=== PATIENT | female | born 1965 | race Caucasian/White ===

== ENCOUNTER 2018-10-01 12:14 | Inpatient (IN) ==
[2018-10-01 13:44] LABS: Baso # (Auto) 0.1 th/mm3 (0.0-0.2); Eos # (Auto) 0.1 th/mm3 (0.0-0.4); Eos % (Auto) 2.1 % (0.0-4.0); Hematocrit 33.9 % (35.0-46.0); Hemoglobin 12.5 gm/dL (11.6-15.3); Lymph # (Auto) 0.9 th/mm3 (1.0-4.8); Lymph % (Auto) 15.1 % (9.0-44.0); Mean Corpuscular Hemoglobin 38.3 pg (27.0-34.0); Mean Corpuscular Volume 103.7 fL (80.0-100.0); Mean Platelet Volume 6.8 fL (7.0-11.0); Mono # (Auto) 0.7 th/mm3 (0.0-0.9); Mono % (Auto) 12.5 % (0.0-8.0); Neut # (Auto) 4.1 th/mm3 (1.8-7.7); Neut % (Auto) 69.3 % (16.0-70.0); Platelet Count 268 th/mm3 (150-450); Red Blood Count 3.26 mil/mm3 (4.00-5.30); Red Cell Distribution Width 12.2 % (11.6-17.2)
--- NOTE | 2018-10-01 13:44 | ED ---
HPI General Chief Complaint: Weakness Stated Complaint: Medical Time Seen by Provider: 10/01/18 13:08 Source: patient and family Mode of arrival: ambulatory Limitations: no limitations History of Present Illness HPI Narrative: Patient is a 53-year-old female presenting to the emergency department for evaluation of facial numbness and weakness in her left upper and lower extremities. Patient states she developed numbness to the left side of her face and tongue several weeks ago. She went to her primary doctor on who ordered an outpatient MRI which is scheduled for October 13. Since patient has had increasing numbness and decreased case briefer strength and coordination in the left arm and left leg. Patient reports that she has had a headache for several weeks which has been more noticeable recently. The headache is localized to the left worship, stabbing in nature, 4 out of 10. Patient took ibuprofen prior to arrival. Patient has a medical history significant for metastatic colon cancer. She reports that it has metastasized to her lungs and her lymph nodes. She has not been on any chemo or radiation for 2 years. She is not seeking any further treatment for the cancer per her report. states that she fell last night and hitting her head, unknown LOC, no prolonged downtime. Patient states that she was making soup last night and she was holding a cup and her case briefer gave out spontaneously. Patient denies any bladder or bowel incontinence, no saddle paresthesia, no speech issues, no dysphasia. Patient is followed by Dr. Dubose for oncology and Dr. Arcos is her primary doctor. Onset (ago): week(s) Timing confirmed by: spouse Location: Reports left face, left arm and left leg History of same: Yes Severity: mild Quality: Reports weak, numb and tingling Relieving factors: none Exacerbating factors: none Context: Reports gradual onset and recent fall On Anticoagulants: No Associated symptoms: Reports headaches Related Data Home Medications Medication Instructions Recorded Confirmed bupropion HCl 300 mg PO QAM 05/19/18 10/01/18 cetirizine [Zyrtec] 10 mg PO DAILY 05/19/18 10/01/18 citalopram 40 mg PO DAILY 05/19/18 10/01/18 valacyclovir 1,500 mg PO DAILY 05/19/18 10/01/18 Allergies Allergy/AdvReac Type Severity Reaction Status Date / Time No Known Allergies Allergy Unverified 12/29/18 12:22 Review of Systems ROS: all other systems reviewed are negative [facility] Medical History Medical History Depression (Acute) Genital herpes (Acute) Normal colonoscopy (Acute) Rectal cancer (Acute) Surgical History Surgical History Hx of tonsillectomy (Acute) Social History Social History Substance History: Active Abuse Second Hand Smoke Exposure: Yes Smoking Status: Former smoker Tobacco Type: Cigarettes How Often Do You Have a Drink Containing Alcohol: 4 or more times a week Recent Travel in [facility] within the Last 8 Weeks: No Recent Out of Country Travel within the Last 8 Weeks: No Substance Abuse Detail Marijuana: Substance Use Type Other:: Medical marijuana Substance Use Status: Active Route Used Substance Abuse: By Mouth Substance Abuse Comment: Medical marijuana Immunization History Tetanus Immunization: >5 Years Exam Narrative Exam Narrative: GENERAL: female. Presenting in no acute distress. SKIN: Focused skin assessment warm/dry. HEAD: Atraumatic. Normocephalic. EYES: Pupils equal and round. No scleral icterus. No injection or drainage. ENT: No nasal bleeding or discharge. Mucous membranes pink and moist. NECK: Trachea midline. No JVD. CARDIOVASCULAR: Regular rate and rhythm. No murmur appreciated. RESPIRATORY: No accessory muscle use. Clear to auscultation. Breath sounds equal bilaterally. GASTROINTESTINAL: Abdomen soft, non-tender, nondistended. Hepatic and splenic margins not palpable. MUSCULOSKELETAL: No obvious deformities. No clubbing. No cyanosis. No edema. NEUROLOGICAL: Awake and alert. No obvious cranial nerve deficits. Motor grossly within normal limits. Normal speech. Slight droop to the left side of mouth. PSYCHIATRIC: Appropriate mood and affect; insight and judgment normal. Course Initial Documented Vital Signs Temperature 98.1 F 10/01/18 12:19 Pulse Rate 78 10/01/18 12:19 Respiratory Rate 18 10/01/18 12:19 Blood Pressure 120/67 10/01/18 12:19 Pulse Oximetry 100 10/01/18 12:19 Last Documented Vital Signs Temperature 97.9 F 10/01/18 18:50 Pulse Rate 68 10/01/18 18:50 Respiratory Rate 18 10/01/18 18:50 Blood Pressure 132/65 10/01/18 18:50 Pulse Oximetry 97 10/01/18 18:50 Critical Care Time Critical Care Time: Yes Total Critical Care Time: 35 Attestation: Counseling/ Coordination of Care: This patient is critically ill with impairment of one or more vital organ systems with a high probability of imminent or life-threatening deterioration. High-complexity medical decision making was required to support vital organ function and/ or prevent deterioration in the patient's condition. Total critical care time spent is 35 minutes giving full attention to this patient. This includes examining and stabilizing the patient, gathering a history from a source other than the patient (i.e., chart review), formulating a differential diagnosis, ordering and interpreting laboratory tests and EKG, ordering and interpreting radiology tests, discussing the patient's care with other providers (neurosurgery, medical oncology, ISC), re-evaluation at frequent intervals, and documentation. Amount of time is separate from teaching, counseling the patient and/or family, and exclusive of procedures. Medical Decision Making ROX Attestation ROX supervised visit: Yes Attestation: I was present with the advanced practitioner during the management of this patient. I discussed the case with the advanced practitioner and agree with the findings and plan as documented in their note except as noted below. 53yF with known metastatic colon CA (lungs, lymph nodes above diaphragm) presenting with several weeks of left-sided face and tongue paresthesias and 2- 3 days of LUE/ LLE paresthesias and weakness. She had a slip and fall at home yesterday secondary to weakness. She had surgery and chemorad 2 years ago when she was initially diagnosed and has since been offered chemotherapy but declined because of work obligations and fear of side effects from chemo. She follows with Dr. Dubose of medical oncology. On exam, the patient is awake and alert with clear, fluent speech, motor strength 5/5 and sensation intact to all extremities, pupils 3 mm and reactive bilaterally, no focal neuro deficits. An MRI of her brain was performed and shows a right thalamic lesion with extensive vasogenic edema extending to brain stem, left frontal convexity lesion , and extra-axial dural thickening concerning for leptomeningeal involvement. I had a long conversation with the patient and her regarding these results. I explained that I recommend admitting her to the intensive care unit for serial neuro checks, IV steroids, and neurosurgery/ oncology/ rad onc consults. I also recommended that she speak with our palliative care service to clarify her overall goals of care. They understand and agree; patient wishes to be full code at this point in time. I spoke with Dr. Haile (neurosurgery) and Dr. Butler (med onc), who agree with [facility] admit and decadron (4 mg q6hr). Case also discussed with Dr. Jonas and Dr. Menon of [facility]. MDM Narrative Medical decision making narrative: Patient presented for evaluation of increasing numbness and tingling as well as weakness in the left side of her body, she also reports increasing headaches. Labs and imaging ordered and pending. Will obtain MRIs of the brain, cervical spine and lumbar spine. Patient has no focal deficits in her extremities. There appears to be a slight facial drooping to the left mouth. Labs reviewed, no acute findings. MRI of the brain shows a 1.8 cm mass within the right thalamus with moderate mass- effect and extensive vasogenic edema extending caudally into the brainstem characteristic of metastatic disease. There is also a possible second lesion at T2, there is also dural thickening in the right temporal lobe possibly signifying leptomeningeal involvement. Patient was given Decadron 10 mg IV x1 dose. These findings were discussed by my attending physician with neurosurgery , printing screen assembler and oncology. Discussed findings with patient and her at bedside. All questions were answered. Please see my attending physician's dictation for further documentation. Medical Screen Exam Complete: Yes Emergency Medical Condition: Yes Differential Diagnosis Differential Diagnosis: Mass versus TIA versus CVA versus radiculopathy versus metabolic abnormality versus other Medical Records Medical records reviewed: Yes I reviewed the patient's medical records. Lab Data Lab results reviewed: Yes I reviewed the patient's lab results. Result diagrams: 10/01/18 13:25 10/01/18 13:25 Lab Results 10/01/18 10/01/18 10/01/18 Range/Units 13:25 13:25 14:40 WBC 6.0 (4.0-11.0) th/mm3 RBC 3.26 L (4.00-5.30) mil/mm3 Hgb 12.5 (11.6-15.3) gm/dL Hct 33.9 L (35.0-46.0) % MCV 103.7 H (80.0-100.0) fL MCH 38.3 H (27.0-34.0) pg MCHC 37.0 H (32.0-36.0) % RDW 12.2 (11.6-17.2) % Plt Count 268 (150-450) th/mm3 MPV 6.8 L (7.0-11.0) fL Prelim Diff (Auto) Slide review pending Neut % (Auto) 69.3 (16.0-70.0) % Lymph % (Auto) 15.1 (9.0-44.0) % [place] % (Auto) 12.5 H (0.0-8.0) % Eos % (Auto) 2.1 (0.0-4.0) % Baso % (Auto) 1.0 (0.0-2.0) % Neut # (Auto) 4.1 (1.8-7.7) th/mm3 Lymph # (Auto) 0.9 L (1.0-4.8) th/mm3 [place] # (Auto) 0.7 (0.0-0.9) th/mm3 Eos # (Auto) 0.1 (0.0-0.4) th/mm3 Baso # (Auto) 0.1 (0.0-0.2) th/mm3 WBC Differential . Diff Scan Auto diff confirmed Differential Comment . Sodium 140 (136-145) meq/L Potassium 4.6 (3.5-5.1) meq/L Chloride 107 (98-107) meq/L Carbon Dioxide 28.5 (21.0-32.0) meq/L Anion Gap 5 (5-15) meq/L BUN 9 (7-18) mg/dL Creatinine 0.68 (0.50-1.00) mg/dL Estimated GFR Greater than 89 (>89) mL/min Random Glucose 93 (74-106) mg/dL Calcium 8.4 L (8.5-10.1) mg/dL Total Bilirubin 0.3 (0.2-1.0) mg/dL AST 18 (15-37) U/L ALT 25 (10-53) U/L Alkaline Phosphatase 76 (45-117) U/L Total Protein 7.5 (6.4-8.2) g/dL Albumin 3.5 (3.4-5.0) g/dL Urine Color Yellow (Yellw/Straw) Urine Clarity Clear (Clear) Urine pH 5.0 (5.0-8.5) Ur Specific [place] 1.009 (1.002-1.035) Urine Protein Negative (Neg-Trace) mg/dL Urine Glucose (UA) Negative (Negative) mg/dL Urine Ketones Negative (Negative) mg/dL Urine Occult Blood Small H (Negative) Urine Nitrate Negative (Negative) Urine Bilirubin Negative (Negative) Urine Urobilinogen Less than 2 (Less than 2) mg/dL Ur Leukocyte Esterase Small H (Negative) Urine RBC 1 (0-3) /hpf Urine WBC 3 (0-5) /hpf Ur Squamous Epith Cells <1 (0-5) /hpf Urine Mucus Few H (Occasional) /lpf Micro UA Comment Culture not ind Ur Microscopic Review Not Reportable Urine Culture Comments Culture not ind Imaging Data Radiologist's impression: Cervical Spine MRI 10/01/18 13:16 CONCLUSION: 1. Left posterior lateral disc protrusion at C6-7 with foraminal encroachment. 2. Degenerative disc disease at C4-5, C5-6 and C6-7 as described. 3. No acute bony abnormality. 4. Normal-appearing spinal cord. Head MRI 10/01/18 13:16 CONCLUSION: 1. 1.8 cm rim-enhancing mass within the right thalamus with moderate mass effect and extensive vasogenic edema extending caudally into the brainstem characteristic of metastatic disease. 2. Small T2 hyperintense focus along the left frontal convexity which may represent a second lesion. 3. Extra-axial dural thickening is noted along the right temporal lobe which may represent leptomeningeal involvement. Lumbar Spine MRI 10/01/18 13:16 CONCLUSION: 1. Degenerative disc disease as described. 2. Discrete findings to account for the patient's left-sided weakness. 3. No acute bony abnormality, spinal stenosis or foraminal encroachment. 4. Small central disc protrusion at L4-5. Discharge Plan Discharge Disposition Patient Disposition: ED Admit(ED Internal Use Only) Discharge Condition Condition: Stable Discharge Order Discharge Orders: ED Use Only Admit Order (Routine); Ordered 10/01/18 Ordered By: aGlina Delgado Discharge Details Diagnosis: Metastatic colon cancer in female, Neoplasm of brain causing mass effect on adjacent structures Physicians Team ED Provider: Galina Delgado ED Midlevel Provider: Stephanie Aguila Primary Care Provider: Cheyanne Cheney Other Providers: Yang Butler ; Jesús Jett ; Angelina Randolph ; Salvador Haile Rxs /Orders / Referrals /Forms Prescriptions: No Action citalopram 40 mg Tablet 40 mg PO DAILY RF: 0 valacyclovir 500 mg Tablet 1,500 mg PO DAILY RF: 0 bupropion HCl 300 mg Tablet Extended Release 24 Hr 300 mg PO QAM RF: 0 cetirizine [Zyrtec] 10 mg Tablet 10 mg PO DAILY RF: 0 Status ED Status: Admitted Patient
[2018-10-01 14:01] LABS: Alanine Aminotransferase 25 U/L (10-53); Albumin 3.5 g/dL (3.4-5.0); Anion Gap 5 meq/L (5-15); Aspartate Aminotransferase 18 U/L (15-37); Blood Urea Nitrogen 9 mg/dL (7-18); Calcium 8.4 mg/dL (8.5-10.1); Carbon Dioxide 28.5 meq/L (21.0-32.0); Chloride 107 meq/L (98-107); Glomerular Filtration Rate Greater Than 89 mL/min (>89); Glucose,Random 93 mg/dL (74-106); Potassium 4.6 meq/L (3.5-5.1); Sodium 140 meq/L (136-145)
[2018-10-01 14:03] LABS: Alkaline Phosphatase 76 U/L (45-117); Total Protein 7.5 g/dL (6.4-8.2)
[2018-10-01] MEDS ORDERED: Gadobutrol PF 7.5 MMOL/7.5 ML Vial (for RAD) IV.SIG ONE (15:15)
[2018-10-01 15:24] LABS: Bilirubin,Urine Negative (Negative); Clarity,Urine Clear (Clear); Color,Urine Yellow (Yellw/Straw); Glucose,Urine (UA) Negative (Negative); Leukocyte Esterase,Urine Small (Negative); Mucus,Urine Few /lpf (Occasional); Nitrite,Urine Negative (Negative); Specific Gravity,Urine 1.009 (1.002-1.035); Squamous Epithelial Cell,Urine <1 /hpf (0-5)
--- NOTE | 2018-10-01 15:46 | MR ---
EXAM DATE: 10/01/2018 3:34 PM EST AGE/SEX: 53 years / Female INDICATIONS: Extremity weakness. CLINICAL DATA: This is the patient's initial encounter. Patient reports that signs and symptoms have been present for 2 days and indicates a pain score of 0/10. MEDICAL/SURGICAL HISTORY: Metastatic disease. Carcinoma, colon. . Lung biopsy. Anal resection. [place] [facility] [place]/01/2018. . TECHNIQUE: Multiplanar, multisequence MRI examination of the cervical spine was performed without an d with 7cc ml Gadavist (gadobutrol) contrast as a single exam dose. FINDINGS: Images are degraded by patient motion. ALIGNMENT: Vertebral bodies are satisfactorily aligned without evidence of listhesis. FACET AND OSSEOUS STRUCTURES: Vertebral body height is well-maintained. There is no evidence of acut e fracture, bone marrow edema or destructive changes. There is no significant facet arthropathy. INTERVERTEBRAL DISC SPACES: Mild degenerative disc disease is noted at C4-5, C5-6 and C6-7. There ar e broad-based posterior disc osteophyte complexes. There is no significant epidural mass effect. Mild left posterior lateral disc protrusion is identified at C6-7 with mild foraminal encroachment. T here is no other evidence of significant disc protrusion. NEUROLOGIC STRUCTURES: The spinal cord and nerve roots appear normal. There is no evidence of cheri ebony. . CONCLUSION: 1. Left posterior lateral disc protrusion at C6-7 with foraminal encroachment. 2. Degenerative disc disease at C4-5, C5-6 and C6-7 as described. 3. No acute bony abnormality. 4. Normal-appearing spinal cord. Electronically signed by: Abdirashid Mata MD Board Certified Radiologist 10/01/2018 3:45 PM EST
--- NOTE | 2018-10-01 16:00 | MR ---
EXAM DATE: 10/01/2018 3:33 PM EST AGE/SEX: 53 years / Female INDICATIONS: Left sided weakness. CLINICAL DATA: This is the patient's initial encounter. Patient reports that signs and symptoms have been present for 2 days and indicates a pain score of 0/10. MEDICAL/SURGICAL HISTORY: Metastatic disease. Carcinoma, colon. . Lung biopsy. Anal resection. COMPARISON: No prior exams available for comparison. TECHNIQUE: Multiplanar, multisequence examination of the brain was performed without and with 7cc ml Gadavist (gadobutrol) contrast as a single exam dose. FINDINGS: Cerebrum: A 1.8 cm rim-enhancing mass is identified within the right thalamus. There is extensive lira rrounding vasogenic edema which extends caudally into the midbrain and posterior mesha. Small amount o f hemorrhage is identified along the right anterolateral margin of the mass. There is focal restricte d diffusion. No other enhancing intra-axial lesions are noted. A very small T2 hyperintense focus is seen along the left parietal convexity. There is no associated enhancement, mass effect or edema. Extra-axial dural thickening is seen along the right temporal lobe. White Matter: Vasogenic edema is identified in the white matter tracts within the right basal gangli onic region extending into the brainstem. Posterior Fossa: As indicated above there is vasogenic edema extending into the right side of the bra instem. Cerebellar hemispheres are unremarkable. Diffusion Imaging: No other focal areas of restricted diffusion are seen. Extracranial: The visualized portions of the orbits and paranasal sinuses are unremarkable. Post Contrast: No abnormal areas of parenchymal or dural enhancement. No evidence of blood-brain ba rrier breakdown. CONCLUSION: 1. 1.8 cm rim-enhancing mass within the right thalamus with moderate mass effect and extensive vasog enic edema extending caudally into the brainstem characteristic of metastatic disease. 2. Small T2 hyperintense focus along the left frontal convexity which may represent a second lesion. 3. Extra-axial dural thickening is noted along the right temporal lobe which may represent leptomeni ngeal involvement. Electronically signed by: Abdirashid Mata MD Board Certified Radiologist 10/01/2018 3:58 PM EST
[2018-10-01] MEDS ORDERED: Dexamethasone Inj 20 MG/5 ML Vial IV.PUSH ONE (16:01)
--- NOTE | 2018-10-01 16:10 | MR ---
EXAM DATE: 10/01/2018 3:48 PM EST AGE/SEX: 53 years / Female INDICATIONS: Weakness. Left side weakness. CLINICAL DATA: This is the patient's initial encounter. Patient reports that signs and symptoms have been present for 2 days and indicates a pain score of 0/10. MEDICAL/SURGICAL HISTORY: Metastatic disease. Carcinoma, colon. . Lung biopsy. Anal resection. COMPARISON: [facility] – [place], [place] CERVICAL SPINE W & W/O CON, 10/01/2018. . TECHNIQUE: Multiplanar, multisequence MRI examination of the lumbar spine was performed without and with 7cc ml Gadavist (gadobutrol) contrast as a single exam dose. FINDINGS: ALIGNMENT: Vertebral bodies are satisfactorily aligned without evidence of listhesis. FACET AND OSSEOUS STRUCTURES: Vertebral body height is well-maintained. There is no evidence of acut e fracture, bone marrow edema or destructive changes. There is no significant facet arthropathy. INTERVERTEBRAL DISC SPACES: Mild degenerative disc changes are noted. L1-2: Disc space narrowing with mild spondylosis and posterior disc osteophyte complex. There is no e vidence of significant herniation, foraminal encroachment or spinal stenosis. L2-3 and L3-4: Normal L4-5: Mild degenerative disc disease with minimal posterior disc protrusion. There is no significant epidural mass effect or foraminal encroachment. L5-S1: Mild degenerative disc disease with focal annular bulging but no evidence of disc herniation. There is no evidence of foraminal encroachment or spinal stenosis. NEUROLOGIC STRUCTURES: The spinal cord and nerve roots appear normal. There is no evidence of cheri ebony. CONCLUSION: 1. Degenerative disc disease as described. 2. Discrete findings to account for the patient's left-sided weakness. 3. No acute bony abnormality, spinal stenosis or foraminal encroachment. 4. Small central disc protrusion at L4-5. Electronically signed by: Abdirashid Mata MD Board Certified Radiologist 10/01/2018 4:09 PM EST
--- NOTE | 2018-10-01 18:36 | MB ---
cc: Salvador Haile MD DATE: 10/01/2018 TIME: 5:15 p.m. Report of initial comprehensive emergency department neurosurgical consultation. The patient was interviewed, examined, the documentation, laboratory evaluation and imaging reviewed. CHIEF COMPLAINT: Numbness and weakness on the left side. 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 She also has developed some weakness and incoordination on the left. Pertinent past medical history is remarkable for history of anal and colon cancer, status post resection, as well as chemo and radiation. She apparently suffered a lymphatic and pulmonary metastasis which was documented in May of this year and deferred chemotherapy at that time. In any case, she also describes headaches associated with these symptoms. She has undergone an MRI scan of the brain done with and without contrast, which suggests an enhancing lesion within the right thalamus extending into the midbrain as well as left frontal and temporal dural enhancement suggesting leptomeningeal disease. There is no hydrocephalus noted. She has also undergone an MRI scan of the cervical and lumbosacral spine, which reveals degenerative changes without any sign of metastatic disease. In any case, a neurosurgical consultation has been requested. PAST MEDICAL HISTORY: Remarkable for history of genital herpes and the rectal and colon cancer with metastasis as described above. PAST SURGICAL HISTORY: Remarkable for the rectal and colon cancer resection as well as a lung biopsy, as well as a history of a tonsillectomy. MEDICATIONS: 1. Valacyclovir. 2. Citalopram. 3. Zyrtec. 4. Bupropion. ALLERGIES: SHE HAS NO KNOWN DRUG ALLERGIES. SOCIAL HISTORY: She is independent. 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 She smokes cigarettes, 1 pack per week. She also takes ethanol socially and might abuse ethanol. She denies a history of illicit drug use. Also, it should be noted that she has been using a medical marijuana as prescribed for her anxiety. FAMILY HISTORY: Remarkable for a history of colon cancer in an aunt. REVIEW OF SYSTEMS: The patient denies any weight loss. She denies any fever, chills or night sweats. She admits to headaches. She admits to some blurring of vision. She denies any change in her thinking or memory or speech or swallowing or chest pain or shortness of breath or abdominal pain. She denies any change in bowel or bladder function or characteristics of urine or stool. She denies any swelling in her lower extremities. She admits to recent gait disturbance. She denies any rashes, itching, or easy bruising. She admits to history of anxiety and depression. NEUROLOGICAL EXAMINATION: VITAL SIGNS: Found her temperature to be 98, her heart rate is 80, her respiratory rate is 16, and her blood pressure is 130/80. SPO2 is 98% on room air. Mental status testing finds the patient to be awake and alert. She is orientated x 3. Cognitive function is grossly intact. His speech is fluent. Cranial nerve testing 2-12 are grossly intact. She had diminished sensation in the left side of her face, in the left V1, V2, and V3 distribution. Her pupils are equally round and reactive to light. Extraocular movements full, without diplopia or nystagmus. Coronary reflexes are present. Her face was symmetric. Gag reflex is present. Motor examination found bulk to be within normal limits. Tone is mildly increased in all 4 extremities. Power testing was 5+/5+ throughout with some subtle weakness proximally of her left upper and left lower extremity. Sensory examination revealed diminished to light touch over face as well as left upper and left lower extremity. Position sense was intact throughout. Deep tendon reflexes were 3+ and symmetric without pathological reflexes noted. Cerebellar testing found some dysmetria on the left. There was no truncal nor appendicular ataxia noted. Gait, Romberg and tandem were not tested. Her head was normocephalic. External auditory canals were clear. There is no sign of CSF otorrhea or rhinorrhea. Cervical spine evaluation revealed full range of motion without pain to palpation. Pulses were 4+, present and symmetric throughout. My impression is that the patient suffers with what appears to be multifocal brain metastasis with leptomeningeal component, primary most likely being rectal and colon carcinoma. RECOMMENDATIONS AND PLAN: I believe the patient requires admission and close neurological observation. At this point, certainly a conservative neurosurgical approach is warranted. I agree with starting her on some Decadron, and she certainly requires medical oncology consultation and radiation oncology consultation, since any neurosurgical intervention at this point is not indicated. She might be a candidate for stereotactic radiosurgery and one might also might consider the possibility of pursuing a lumbar puncture for cerebrospinal fluid analysis and cytology. In any case, I will be happy to follow along and discuss. Thank you for allowing me to participate in the care of this patient. MD ROCIO Boyce/lor , 05:55 PM , 06:06 PM
--- NOTE | 2018-10-01 19:13 | P.HPCC ---
History of Present Illness Service: Critical care medicine Primary Care Physician: Cheyanne Cheney DO Chief Complaint: left-sided numbness/weakness History of Present Illness: 53yF with history of stage IV metastatic colon cancer with mets to lung and lymph nodes presents with 3-4 weeks of progressive morning headaches and left facial numbness that has progressed to full left-sided paresthesias over the last few days and today had left-sided weakness and could not hold a cooking wade today. In the ER, she was found to have a midbrain mass highly suggestive of metastatic disease. She denies any other recent complaints. denies vision changes, blurry vision, double vision, syncope, presyncope, chest pain, sob, fever, chills, n/v/c/d/abd pain. remainder of the ROS negative. neurosurgery has evaluated the patient and recommends iv dexamethasone as well as rad/onc and med/onc consultations. Review of Systems All other systems reviewed negative except as stated in HPI PMFSH - History History Provided By: Patient - Medical History Medical History: Medical History (Last Reviewed 10/01/18 @ 20:47 by Reinaldo Menon MD) Depression Genital herpes Normal colonoscopy Rectal cancer - Surgical History Surgical History: Surgical History (Last Reviewed 10/01/18 @ 20:47 by Reinaldo Menon MD) Hx of tonsillectomy - Family History Family History: Family History (Last Updated 10/01/18 @ 20:47 by Reinaldo Menon MD) Other Family history non-contributory - Social History I have reviewed the patient's Social History: Yes - Tobacco History Second Hand Smoke Exposure: Yes Tobacco Use In Past 30 Days: Yes Smoking Status: Former smoker Tobacco Type: Cigarettes - Alcohol History How Often Do You Have a Drink Containing Alcohol: 4 or more times a week - Substance Use History Substance History: Active Abuse - Substance Use Type Marijuana Type: Medical marijuana Status: Active Route Used: By Mouth Comment: Medical marijuana - Travel History Recent Travel in the [place] Within the Last 8 Weeks: No Recent Travel Out of the Country Within the Last 8 Weeks: No - Immunization History Tetanus Immunization: >5 Years Medications and Allergies Active Medications: Active Medications Dexamethasone Sodium Phosphate (Decadron Inj) 4 mg IV.PUSH Q6HR ERNESTO Last Admin: 10/01/18 17:56 Dose: 4 mg Sodium Chloride (Ns Flush) 2 ml IV.FLUSH PRN PRN PRN Reason: FLUSH AFTER USING IV ACCESS Last Admin: 10/01/18 16:13 Dose: 2 ml Allergies Allergy/AdvReac Type Severity Reaction Status Date / Time No Known Allergies Allergy Unverified 10/01/18 12:22 Home Medications Medication Instructions Recorded Confirmed Type bupropion HCl 300 mg PO QAM 05/19/18 10/01/18 History cetirizine [Zyrtec] 10 mg PO DAILY 05/19/18 10/01/18 History citalopram 40 mg PO DAILY 05/19/18 10/01/18 History valacyclovir 1,500 mg PO DAILY 05/19/18 10/01/18 History Results - Labs CBC & Chem 7: 10/01/18 13:25 10/01/18 13:25 Labs: Short CBC 10/01/18 Range/Units 13:25 WBC 6.0 (4.0-11.0) th/mm3 Hgb 12.5 (11.6-15.3) gm/dL Hct 33.9 L (35.0-46.0) % Plt Count 268 (150-450) th/mm3 [facility] 10/01/18 13:25 Sodium 140 Potassium 4.6 Chloride 107 Carbon Dioxide 28.5 BUN 9 Creatinine 0.68 Calcium 8.4 L Liver Function 10/01/18 Range/Units 13:25 Total Bilirubin 0.3 (0.2-1.0) mg/dL AST 18 (15-37) U/L ALT 25 (10-53) U/L Alkaline Phosphatase 76 (45-117) U/L Albumin 3.5 (3.4-5.0) g/dL Urine 10/01/18 Range/Units 14:40 Urine Color Yellow (Yellw/Straw) Urine Clarity Clear (Clear) Urine pH 5.0 (5.0-8.5) Ur Specific [place] 1.009 (1.002-1.035) Urine Protein Negative (Neg-Trace) mg/dL Urine Glucose (UA) Negative (Negative) mg/dL - Imaging Impressions Cervical Spine MRI 10/01/18 13:16 CONCLUSION: 1. Left posterior lateral disc protrusion at C6-7 with foraminal encroachment. 2. Degenerative disc disease at C4-5, C5-6 and C6-7 as described. 3. No acute bony abnormality. 4. Normal-appearing spinal cord. Head MRI 10/01/18 13:16 CONCLUSION: 1. 1.8 cm rim-enhancing mass within the right thalamus with moderate mass effect and extensive vasogenic edema extending caudally into the brainstem characteristic of metastatic disease. 2. Small T2 hyperintense focus along the left frontal convexity which may represent a second lesion. 3. Extra-axial dural thickening is noted along the right temporal lobe which may represent leptomeningeal involvement. Lumbar Spine MRI 10/01/18 13:16 CONCLUSION: 1. Degenerative disc disease as described. 2. Discrete findings to account for the patient's left-sided weakness. 3. No acute bony abnormality, spinal stenosis or foraminal encroachment. 4. Small central disc protrusion at L4-5. Exam Vital signs: Vital Signs 10/01/18 12:19 10/01/18 13:16 10/01/18 15:52 Temperature 36.7 C 36.6 C Pulse Rate 78 76 77 Respiratory Rate 18 23 Blood Pressure 120/67 131/66 Pulse Oximetry 100 99 99 10/01/18 17:58 10/01/18 18:50 Temperature 36.5 C 36.6 C Pulse Rate 68 68 Respiratory Rate 17 18 Blood Pressure 116/71 132/65 Pulse Oximetry 96 97 Intake & Output 10/01/18 10/01/18 10/02/18 06:59 18:59 06:59 Weight 70.307 kg Narrative: GENERAL: Middle-aged female, awake alert, lying in bed, no acute distress HEENT: Normocephalic. Atraumatic. Pupils 3 mm, equal, round, reactive, conjugate. Mucous membranes are moist NECK: Trachea is midline. There is no JVD. CHEST: Equal chest rise. Room air. Unlabored. CARDIOVASCULAR: Normal rate, regular rhythm. Sinus. ABDOMEN: Soft, nontender, nondistended. No guarding. MUSCULOSKELETAL: Pulses 2+. No peripheral edema. NEUROLOGICAL: GCS 15. RASS 0. CAM -. Awake, alert, oriented x3. Musculoskeletal strength is 5/5 in the right side. Muscular skeletal strength is very slightly weakened on the left, more noticeable to the patient then to objective observer, but but can be characterized as 4+/5 in both the left upper and left lower extremities. She does exhibit moderate ataxia with finger to nose on the left. Her boyfriend states she has significant gait ataxia on the left side, but this evaluation was deferred. Patient complains of subjective paresthesias on her left side, but sensation does appear to be grossly intact on my evaluation. Cranial nerves II through XII grossly intact. Pupils as above. Caprini VTE Risk Assessment Caprini VTE Risk Assessment: Moderate/High Risk (score >= 2) VTE Pharmacological Exception Reason: Intracranial lesions Caprini Risk Assessment Model: Point Value = 1 Point Value = 2 Point Value = 3 Point Value = 5 Age 41-60 Minor surgery BMI > 25 kg/m2 Swollen legs Varicose veins or History of unexplained or recurrent spontaneous Oral contraceptives or hormone replacement Sepsis (< 1 month) Serious lung disease, including pneumonia (< 1 month) Abnormal pulmonary function Acute myocardial infarction Congestive heart failure (< 1 month) History of inflammatory bowel disease Medical patient at bed rest Age 61-74 Arthroscopic surgery Major open surgery (> 45 min) Laparoscopic surgery (> 45 min) Malignancy Confined to bed (> 72 hours) Immobilizing plaster cast Central venous access Age >= 75 History of VTE Family history of VTE Factor V Leiden Prothrombin [id number] Lupus anticoagulant Anticardiolipin antibodies Elevated serum homocysteine Heparin-induced thrombocytopenia Other congenital or acquired thrombophilia Stroke (< 1 month) Elective arthroplasty Hip, pelvis, or leg fracture Acute spinal cord injury (< 1 month) Prophylaxis Regimen: Total Risk Factor Score Risk Level Prophylaxis Regimen 0-1 Low Early ambulation 2 Moderate Order ONE of the following: *Sequential Compression Device (SCD) *Heparin 5000 units SQ BID 3-4 Higher Order ONE of the following medications: *Heparin 5000 units SQ TID *Enoxaparin/Lovenox 40 mg SQ daily (WT < 150 kg, CrCl > 30 mL/min) *Enoxaparin/Lovenox 30 mg SQ daily (WT < 150 kg, CrCl > 10-29 mL/min) *Enoxaparin/Lovenox 30 mg SQ BID (WT < 150 kg, CrCl > 30 mL/min) AND/OR *Sequential Compression Device (SCD) 5 or more Highest Order ONE of the following medications: *Heparin 5000 units SQ TID (Preferred with Epidurals) *Enoxaparin/Lovenox 40 mg SQ daily (WT < 150 kg, CrCl > 30 mL/min) *Enoxaparin/Lovenox 30 mg SQ daily (WT < 150 kg, CrCl > 10-29 mL/min) *Enoxaparin/Lovenox 30 mg SQ BID (WT < 150 kg, CrCl > 30 mL/min) AND *Sequential Compression Device (SCD) Assessment and Plan - Assessment and Plan Plan: Assessment: 53-year-old female with widely metastatic stage IV colon cancer with known metastases to the lung and lymph nodes, and new mass in her midbrain , likely metastatic disease. Admit to ICU for close neuro monitoring. IV dexamethasone. Neurosurgery, medical oncology, radiation oncology consultation as well as palliative care consultation. Active problems: Stage IV widely metastatic colon cancer New brain mass in the mid brain New left sided weakness Plan: Admit ICU Frequent neurochecks Avoid sedation Neurosurgery consultation Patient oncology consultation Medical oncology consultation Dexamethasone IV every 6 hours Out of bed with assistance PT consult Nursing bedside swallow assessment and advance diet Palliative care consultation SCDs Avoid from oncologic DVT prophylaxis given new intracranial lesion Critical care medicine will continue to follow along.
[2018-10-01] MEDS ORDERED: Magnesium Sulfate Inj 4 GM in Sodium Chlor 0.9% Inj 92 ML IV.SIG PRN (19:26)
[2018-10-01] MEDS ORDERED: Dextrose 50% in Water 50 ML Vial IV.PUSH PRN (19:26)
[2018-10-01] MEDS ORDERED: Bisacodyl 10 MG Supp RECTAL PRN (19:26)
[2018-10-01] MEDS ORDERED: Acetaminophen 325 MG Tablet PO PRN (19:26)
[2018-10-01] MEDS ORDERED: Magnesium Sulfate Inj 2 GM in Sodium Chlor 0.9% Inj 96 ML IV.SIG PRN (19:26)
[2018-10-01] MEDS ORDERED: Potassium Chlor 40 mEq Premix 40 MEQ/100 ML PIGGYBACK IV.SIG PRN ×2 (19:26)
[2018-10-01] MEDS ORDERED: Magnesium Oxide 400 MG Tablet PO PRN (19:26)
[2018-10-01] MEDS ORDERED: Potassium Phosphate Inj 30 MMOL in Sodium Chlor 0.9% Inj 250 ML IV.SIG PRN (19:26)
[2018-10-01] MEDS ORDERED: Potassium Phosphate 500 MG Soluble Tablet PO PRN ×2 (19:26)
[2018-10-01] MEDS ORDERED: Potassium Chlor 20 mEq Premix 20 MEQ/100 ML PIGGYBACK IV.SIG PRN ×2 (19:26)
[2018-10-01] MEDS ORDERED: Potassium Chloride 25 MEQ Effervescent Tablet PO PRN (19:26)
[2018-10-01] MEDS ORDERED: Sodium Phosphate Inj 30 MMOL in Sodium Chlor 0.9% Inj 250 ML IV.SIG PRN (19:26)
[2018-10-02] MEDS: Polyethylene Glycol 3350 17 GM Packet PO SCH ×3 (00:40→21:20)
[2018-10-02] MEDS: Senna/Docusate Sodium 8.6/50 MG Tablet PO SCH ×3 (00:40→21:20)
[2018-10-02] MEDS: Famotidine 20 MG Tablet PO SCH ×3 (00:41→21:20)
[2018-10-02] MEDS: Insulin NovoLIN Regular Correctional Sugar Inj SQ SCH ×6 (00:45→21:20)
[2018-10-02] MEDS ORDERED: Chlorhexidine Gluconate 2% 1 Pack (2 Cloths) TOPICAL PRN (04:00)
[2018-10-02] MEDS: Chlorhexidine Gluconate 2% 1 Pack (2 Cloths) TOPICAL SCH (04:24)
[2018-10-02 04:48] LABS: Baso % (Auto) 0.2 % (0.0-2.0); Hematocrit 36.9 % (35.0-46.0); Hemoglobin 12.8 gm/dL (11.6-15.3); Lymph # (Auto) 0.6 th/mm3 (1.0-4.8); Lymph % (Auto) 12.5 % (9.0-44.0); Mean Corpuscular HGB Conc 34.7 % (32.0-36.0); Mean Corpuscular Hemoglobin 35.5 pg (27.0-34.0); Mean Corpuscular Volume 102.5 fL (80.0-100.0); Mean Platelet Volume 6.9 fL (7.0-11.0); Mono % (Auto) 0.9 % (0.0-8.0); Neut # (Auto) 4.5 th/mm3 (1.8-7.7); Neut % (Auto) 86.4 % (16.0-70.0); Platelet Count 310 th/mm3 (150-450); White Blood Count 5.2 th/mm3 (4.0-11.0)
[2018-10-02 05:01] LABS: Anion Gap 9 meq/L (5-15); Blood Urea Nitrogen 9 mg/dL (7-18); Calcium 8.6 mg/dL (8.5-10.1); Carbon Dioxide 22.4 meq/L (21.0-32.0); Chloride 107 meq/L (98-107); Glomerular Filtration Rate Greater Than 89 mL/min (>89); Glucose,Random 146 mg/dL (74-106); Magnesium 2.2 mg/dL (1.5-2.5); Phosphorus 3.5 mg/dL (2.5-4.9); Potassium 4.1 meq/L (3.5-5.1); Sodium 138 meq/L (136-145)
--- NOTE | 2018-10-02 08:36 | P.CON ---
History of Present Illness Service: radiation oncology Consult date: 10/02/18 Reason for Consult: brain metastasis Primary Care Provider: Cheyanne Cheney DO Chief Complaint: left-sided numbness/weakness History of Present Illness: left facial weakness a few weeks. Less coordination left side left hand and left leg e.g. holding a bowl of soup dropped, and walking. PMFSH - History History Provided By: Patient - Medical History Medical History: Medical History (Last Reviewed 10/01/18 @ 20:47 by Reinaldo Menon MD) Depression Genital herpes Normal colonoscopy Rectal cancer - Surgical History Surgical History: Surgical History (Last Reviewed 10/01/18 @ 20:47 by Reinaldo Menon MD) Hx of tonsillectomy - Family History Family History: Family History (Last Updated 10/01/18 @ 20:47 by Reinaldo Menon MD) Other Family history non-contributory - Tobacco History Second Hand Smoke Exposure: Yes Tobacco Use In Past 30 Days: Yes Smoking Status: Current every day smoker Tobacco Type: Cigarettes - Alcohol History How Often Do You Have a Drink Containing Alcohol: 4 or more times a week - Substance Use History Substance History: Active Abuse - Substance Use Type Marijuana Type: medical marijuana Status: Active Route Used: Inhalation Comment: Medical marijuana - Travel History Recent Travel in the [place] Within the Last 8 Weeks: No Recent Travel Out of the Country Within the Last 8 Weeks: No - Immunization History Tetanus Immunization: >5 Years Hx Influenza Vaccine This Season: No Medications and Allergies Active Medications: Active Medications Acetaminophen (Tylenol) 650 mg PO Q6H PRN PRN Reason: TEMPERATURE > 101 F Albuterol (Duoneb Neb (Prn)) 1 ampul NEB Q2HR NEB PRN PRN Reason: WHEEZING Bisacodyl (Dulcolax Supp) 10 mg RECTAL DAILY PRN PRN Reason: if no BM in last 24h Chlorhexidine Gluconate (Chlorhexidine 2% Cloth) 3 pack TOPICAL DAILY@0400 ERNESTO Stop: 10/07/18 03:59 Last Admin: 10/02/18 04:24 Dose: 3 pack Chlorhexidine Gluconate (Chlorhexidine 2% Cloth) 3 pack TOPICAL DAILY@0400 PRN PRN Reason: Extra cloth needed Stop: 10/07/18 03:59 Dexamethasone Sodium Phosphate (Decadron Inj) 4 mg IV.PUSH Q6HR ERNESTO Last Admin: 10/02/18 06:00 Dose: 4 mg Dextrose (D50w Vial) 50 ml IV.PUSH UNSCH PRN PRN Reason: PER HYPOGLYCEMIA PROTOCOL Famotidine (Pepcid) 20 mg PO BID [facility] [place] Last Admin: 10/02/18 00:41 Dose: 20 mg Glucagon (Glucagon Inj) 1 mg OTHER PRN PRN PRN Reason: for Hypoglycemia Protocol Magnesium Sulfate 4 gm/ Sodium (Chloride) 100 mls @ 50 mls/hr IV.SIG UNSCH PRN PRN Reason: For Magnesium 0.9 - 1.1 mg/dL Magnesium Sulfate 2 gm/ Sodium (Chloride) 100 mls @ 50 mls/hr IV.SIG UNSCH PRN PRN Reason: For Magnesium 1.2 - 1.6 mg/dL Potassium Chloride (Kcl 40 Meq Premix Inj) 40 meq in 100 mls @ 25 mls/hr IV.SIG Q2H PRN PRN Reason: For Potassium 2.8 - 3.2 mEq/L Potassium Chloride (Kcl 20 Meq Premix Inj) 20 meq in 100 mls @ 50 mls/hr IV.SIG Q2H PRN PRN Reason: For Potassium 3.3 - 3.5 mEq/L Potassium Chloride (Kcl 40 Meq Premix Inj) 40 meq in 100 mls @ 25 mls/hr IV.SIG UNSCH PRN PRN Reason: For Potassium 3.3 - 3.5 mEq/L Potassium Chloride (Kcl 20 Meq Premix Inj) 20 meq in 100 mls @ 50 mls/hr IV.SIG Q2H PRN PRN Reason: For Potassium 2.8 - 3.2 mEq/L Potassium Phosphate 30 mmol/ (Sodium Chloride) 260 mls @ 42 mls/hr IV.SIG UNSCH PRN PRN Reason: SEE LABEL COMMENTS Sodium Phosphate 30 mmol/ (Sodium Chloride) 260 mls @ 42 mls/hr IV.SIG UNSCH PRN PRN Reason: For Phosphorus < 2.5 mg/dL Influenza Virus Vaccine (Fluarix (Quad) Vaccine Inj) 0.5 ml IM .ONCE ONE Stop: 10/02/18 09:01 Insulin Human Regular (Novolin R Correctional Sugar Inj) 0 units SQ ACHS AND 3AM ERNESTO; Protocol Last Admin: 10/02/18 06:01 Dose: Not Given Lactulose (Lactulose Liq) 30 ml PO BID [facility] [place] Last Admin: 10/02/18 00:39 Dose: Not Given Magnesium Oxide (Mag-Ox) 800 mg PO UNSCH PRN PRN Reason: For Magnesium 1.2 - 1.6 mg/dL Ondansetron HCl (Zofran Inj) 4 mg IV.PUSH Q6H PRN PRN Reason: NAUSEA OR VOMITING Oxycodone HCl (Roxicodone) 5 mg PO Q4H PRN PRN Reason: Pain 1-5 Polyethylene Glycol (Miralax) 17 gm PO BID [facility] [place] Last Admin: 10/02/18 00:40 Dose: Not Given Potassium Bicarb/Potassium Chloride (K-Lyte Cl Eff) 50 meq PO UNSCH PRN PRN Reason: For Potassium 3.3 - 3.5 mEq/L Potassium Phosphate (K-Phos Original) 2,000 mg PO Q4H PRN PRN Reason: Phosphorus Less Than 2.5 mg/dL Potassium Phosphate (K-Phos Original) 2,000 mg PO UNSCH PRN PRN Reason: SEE LABEL COMMENTS Senna/Docusate Sodium (Nelli-Colace) 1 tab PO BID [facility] [place] Last Admin: 10/02/18 00:40 Dose: Not Given Sodium Chloride (Ns Flush) 2 ml IV.FLUSH PRN PRN PRN Reason: FLUSH AFTER USING IV ACCESS Last Admin: 10/01/18 16:13 Dose: 2 ml Sodium Chloride (Ns Flush) 2 ml IV.FLUSH UNSCH PRN PRN Reason: FLUSH AFTER USING IV ACCESS Allergies Allergy/AdvReac Type Severity Reaction Status Date / Time No Known Allergies Allergy Unverified 10/01/18 12:22 Home Medications Medication Instructions Recorded Confirmed Type bupropion HCl 300 mg PO QAM 05/19/18 10/01/18 History cetirizine [Zyrtec] 10 mg PO DAILY 05/19/18 10/01/18 History citalopram 40 mg PO DAILY 05/19/18 10/01/18 History valacyclovir 1,500 mg PO DAILY 05/19/18 10/01/18 History Physical Exam Vital signs: Vital Signs 10/01/18 12:19 10/01/18 13:16 10/01/18 15:52 Temperature 98.1 F 97.9 F Pulse Rate 78 76 77 Respiratory Rate 18 23 Blood Pressure 120/67 131/66 Pulse Oximetry 100 99 99 10/01/18 17:58 10/01/18 18:50 10/01/18 20:00 Temperature 97.7 F 97.9 F Pulse Rate 68 68 Respiratory Rate 17 18 Blood Pressure 116/71 132/65 Pulse Oximetry 96 97 100 10/01/18 22:03 10/01/18 22:05 10/01/18 22:29 Temperature 98.6 F Pulse Rate 75 74 72 Respiratory Rate 13 15 21 Blood Pressure 115/59 L 122/65 Pulse Oximetry 96 97 96 10/01/18 23:00 10/01/18 23:29 10/02/18 00:00 Temperature Pulse Rate 73 79 67 Respiratory Rate 17 18 15 Blood Pressure 107/54 L Pulse Oximetry 94 L 95 96 10/02/18 00:29 10/02/18 01:00 10/02/18 01:29 Temperature Pulse Rate 68 68 66 Respiratory Rate 23 18 19 Blood Pressure 106/55 L 119/63 Pulse Oximetry 95 97 97 10/02/18 02:00 10/02/18 02:29 10/02/18 03:00 Temperature Pulse Rate 67 68 77 Respiratory Rate 22 19 14 Blood Pressure 126/64 Pulse Oximetry 95 96 97 10/02/18 03:29 10/02/18 04:00 10/02/18 04:29 Temperature 98.6 F Pulse Rate 62 63 60 Respiratory Rate 18 18 19 Blood Pressure 150/71 H 150/71 H 138/67 Pulse Oximetry 96 97 97 10/02/18 05:00 10/02/18 05:29 10/02/18 06:00 Temperature Pulse Rate 58 L 54 L 55 L Respiratory Rate 20 24 14 Blood Pressure 94/64 L Pulse Oximetry 94 L 93 L Intake & Output 10/01/18 10/02/18 10/02/18 18:59 06:59 18:59 Weight 70.307 kg 75.8 kg Other: # Voids 2 Weight On Admission 70.3 kg Results - Labs CBC & Chem 7: 10/02/18 04:10 10/02/18 04:10 Labs: Laboratory Results - last 24 hr 10/01/18 10/01/18 10/01/18 13:25 13:25 14:40 WBC 6.0 RBC 3.26 L Hgb 12.5 Hct 33.9 L MCV 103.7 H MCH 38.3 H MCHC 37.0 H RDW 12.2 Plt Count 268 MPV 6.8 L Prelim Diff (Auto) Slide review pending Neut % (Auto) 69.3 Lymph % (Auto) 15.1 [place] % (Auto) 12.5 H Eos % (Auto) 2.1 Baso % (Auto) 1.0 Neut # (Auto) 4.1 Lymph # (Auto) 0.9 L [place] # (Auto) 0.7 Eos # (Auto) 0.1 Baso # (Auto) 0.1 WBC Differential . Diff Scan Auto diff confirmed Differential Comment . Sodium 140 Potassium 4.6 Chloride 107 Carbon Dioxide 28.5 Anion Gap 5 BUN 9 Creatinine 0.68 Estimated GFR Greater than 89 POC Glucose Random Glucose 93 Calcium 8.4 L Phosphorus Magnesium Total Bilirubin 0.3 AST 18 ALT 25 Alkaline Phosphatase 76 Total Protein 7.5 Albumin 3.5 Urine Color Yellow Urine Clarity Clear Urine pH 5.0 Ur Specific [place] 1.009 Urine Protein Negative Urine Glucose (UA) Negative Urine Ketones Negative Urine Occult Blood Small H Urine Nitrate Negative Urine Bilirubin Negative Urine Urobilinogen Less than 2 Ur Leukocyte Esterase Small H Urine RBC 1 Urine WBC 3 Ur Squamous Epith Cells <1 Urine Mucus Few H Micro UA Comment Culture not ind Ur Microscopic Review Not Reportable Urine Culture Comments Culture not ind Nasal Screen MRSA (PCR) 10/01/18 10/02/18 10/02/18 22:50 00:45 04:10 WBC 5.2 RBC 3.60 L Hgb 12.8 Hct 36.9 MCV 102.5 H MCH 35.5 H MCHC 34.7 RDW 12.0 Plt Count 310 MPV 6.9 L Prelim Diff (Auto) Neut % (Auto) 86.4 H Lymph % (Auto) 12.5 [place] % (Auto) 0.9 Eos % (Auto) 0.0 Baso % (Auto) 0.2 Neut # (Auto) 4.5 Lymph # (Auto) 0.6 L [place] # (Auto) 0.0 Eos # (Auto) 0.0 Baso # (Auto) 0.0 WBC Differential . Diff Scan Differential Comment Auto diff final Sodium Potassium Chloride Carbon Dioxide Anion Gap BUN Creatinine Estimated GFR POC Glucose 141 H Random Glucose Calcium Phosphorus Magnesium Total Bilirubin AST ALT Alkaline Phosphatase Total Protein Albumin Urine Color Urine Clarity Urine pH Ur Specific [place] Urine Protein Urine Glucose (UA) Urine Ketones Urine Occult Blood Urine Nitrate Urine Bilirubin Urine Urobilinogen Ur Leukocyte Esterase Urine RBC Urine WBC Ur Squamous Epith Cells Urine Mucus Micro UA Comment Ur Microscopic Review Urine Culture Comments Nasal Screen MRSA (PCR) Not detected 10/02/18 04:10 WBC RBC Hgb Hct MCV MCH MCHC RDW Plt Count MPV Prelim Diff (Auto) Neut % (Auto) Lymph % (Auto) [place] % (Auto) Eos % (Auto) Baso % (Auto) Neut # (Auto) Lymph # (Auto) [place] # (Auto) Eos # (Auto) Baso # (Auto) WBC Differential Diff Scan Differential Comment Sodium 138 Potassium 4.1 Chloride 107 Carbon Dioxide 22.4 Anion Gap 9 BUN 9 Creatinine 0.55 Estimated GFR Greater than 89 POC Glucose Random Glucose 146 H Calcium 8.6 Phosphorus 3.5 Magnesium 2.2 Total Bilirubin AST ALT Alkaline Phosphatase Total Protein Albumin Urine Color Urine Clarity Urine pH Ur Specific [place] Urine Protein Urine Glucose (UA) Urine Ketones Urine Occult Blood Urine Nitrate Urine Bilirubin Urine Urobilinogen Ur Leukocyte Esterase Urine RBC Urine WBC Ur Squamous Epith Cells Urine Mucus Micro UA Comment Ur Microscopic Review Urine Culture Comments Nasal Screen MRSA (PCR) - Imaging Impressions Cervical Spine MRI 10/01/18 13:16 CONCLUSION: 1. Left posterior lateral disc protrusion at C6-7 with foraminal encroachment. 2. Degenerative disc disease at C4-5, C5-6 and C6-7 as described. 3. No acute bony abnormality. 4. Normal-appearing spinal cord. Head MRI 10/01/18 13:16 CONCLUSION: 1. 1.8 cm rim-enhancing mass within the right thalamus with moderate mass effect and extensive vasogenic edema extending caudally into the brainstem characteristic of metastatic disease. 2. Small T2 hyperintense focus along the left frontal convexity which may represent a second lesion. 3. Extra-axial dural thickening is noted along the right temporal lobe which may represent leptomeningeal involvement. Lumbar Spine MRI 10/01/18 13:16 CONCLUSION: 1. Degenerative disc disease as described. 2. Discrete findings to account for the patient's left-sided weakness. 3. No acute bony abnormality, spinal stenosis or foraminal encroachment. 4. Small central disc protrusion at L4-5. Assessment and Plan - Plan We discussed palliative xrt. She is better or not worse on steroids. Left hand physiotherapy practice manager good. Left leg strength good. We discussed fractionated steretactic radiosurgery SRT which would involve neurosurgeon in planning. SRT would likely result in reasonable control of the 1.8 cm lesion. We discussed the other areas too (leptomeningeal spread) maybe second area consider whole brain radiation which could be done in a more urgent fashion but likely result in less good local control and more side effects such as fatigue. We will follow her course. If she deteriates consider urgent whole brain xrt. If stable or improves plan CT sim this wednesday and first fraction day or so after. SRT say 25-30 Gy 5 fractions to the 1.8 cm lesion only, and follow the other lesions , if whole brain 30 Gy 10 fractions. I will follow how she does as inpatient. Thank you khris lacey [phone].
[2018-10-02] MEDS ORDERED: Influenza (Quadrivalent) Vaccine 0.5 ML Syringe IM ONE (09:00)
[2018-10-02] MEDS ORDERED: valACYclovir 500 MG Tab PO SCH ×2 (10:00→11:00)
[2018-10-02] MEDS ORDERED: Acetaminophen 325 MG Tablet PO PRN (10:00)
[2018-10-02] MEDS ORDERED: buPROPion 150 MG 12 HR Tablet PO SCH (10:00)
--- NOTE | 2018-10-02 10:25 | P.PNCC ---
Subjective Subjective Remarks/Hospital Course: 53yF with history of stage IV metastatic colon cancer with mets to lung and lymph nodes presents with 3-4 weeks of progressive morning headaches and left facial numbness that has progressed to full left-sided paresthesias over the last few days and today had left-sided weakness and could not hold a cooking wade today. In the ER, she was found to have a midbrain mass highly suggestive of metastatic disease. She denies any other recent complaints. denies vision changes, blurry vision, double vision, syncope, presyncope, chest pain, sob, fever, chills, n/v/c/d/abd pain. remainder of the ROS negative. neurosurgery has evaluated the patient and recommends iv dexamethasone as well as rad/onc and med/onc consultations. 10/02: No overnight events, patient reports that she ambulated to and from the restroom without difficulty. Reports stable left face/ tongue paresthesias and left upper/ lower extremity paresthesias/ weakness, no new symptoms. Only complains of mild occipital headache. Objective Vital Signs / I&O: Vital Signs 10/01/18 12:19 10/01/18 13:16 10/01/18 15:52 Temperature 98.1 F 97.9 F Pulse Rate 78 76 77 Respiratory Rate 18 23 Blood Pressure 120/67 131/66 Pulse Oximetry 100 99 99 10/01/18 17:58 10/01/18 18:50 10/01/18 20:00 Temperature 97.7 F 97.9 F Pulse Rate 68 68 Respiratory Rate 17 18 Blood Pressure 116/71 132/65 Pulse Oximetry 96 97 100 10/01/18 22:03 10/01/18 22:05 10/01/18 22:29 Temperature 98.6 F Pulse Rate 75 74 72 Respiratory Rate 13 15 21 Blood Pressure 115/59 L 122/65 Pulse Oximetry 96 97 96 10/01/18 23:00 10/01/18 23:29 10/02/18 00:00 Temperature Pulse Rate 73 79 67 Respiratory Rate 17 18 15 Blood Pressure 107/54 L Pulse Oximetry 94 L 95 96 10/02/18 00:29 10/02/18 01:00 10/02/18 01:29 Temperature Pulse Rate 68 68 66 Respiratory Rate 23 18 19 Blood Pressure 106/55 L 119/63 Pulse Oximetry 95 97 97 10/02/18 02:00 10/02/18 02:29 10/02/18 03:00 Temperature Pulse Rate 67 68 77 Respiratory Rate 22 19 14 Blood Pressure 126/64 Pulse Oximetry 95 96 97 10/02/18 03:29 10/02/18 04:00 10/02/18 04:29 Temperature 98.6 F Pulse Rate 62 63 60 Respiratory Rate 18 18 19 Blood Pressure 150/71 H 150/71 H 138/67 Pulse Oximetry 96 97 97 10/02/18 05:00 10/02/18 05:29 10/02/18 06:00 Temperature Pulse Rate 58 L 54 L 55 L Respiratory Rate 20 24 14 Blood Pressure 94/64 L Pulse Oximetry 94 L 93 L 10/02/18 06:29 10/02/18 07:00 10/02/18 07:29 Temperature Pulse Rate 59 L 54 L 73 Respiratory Rate 14 25 H 39 H Blood Pressure 106/65 114/58 L Pulse Oximetry 83 L 97 10/02/18 08:00 10/02/18 08:29 Temperature 98.0 F Pulse Rate 69 68 Respiratory Rate 31 H 44 H Blood Pressure 110/66 110/66 Pulse Oximetry 97 93 L Intake & Output 10/01/18 10/02/18 10/02/18 18:59 06:59 18:59 Weight 70.307 kg 75.8 kg Other: # Voids 2 Weight On Admission 70.3 kg Result Diagrams: 10/02/18 04:10 10/02/18 04:10 Objective Remarks: GEN: Well-appearing, no acute distress HEENT: Pupils 3 mm and reactive bilaterally NECK: Trachea midline CARDIO: Regular rate and rhythm PULM: Clear to auscultation bilaterally ABD/GI: Soft, non-tender in all quadrants EXT/MSK: No peripheral edema SKIN: Warm and well-perfused, no rashes or lesions NEURO: Awake and alert, answers questions appropriately, speech clear and fluent , motor strength 5/5 in all extremities, no drift, sensation grossly intact PSYCH: Appropriate affect Assessment and Plan - Assessment and Plan Plan: Assessment: 53-year-old female with widely metastatic stage IV colon cancer with known metastases to the lung and lymph nodes, and new mass in her midbrain , likely metastatic disease. Neurosurgery, medical oncology, radiation oncology consultation as well as palliative care consultation. Plan by systems: NEURO: Right thalamic metastatic lesion with surrounding vasogenic edema extending to brainstem Left frontal convexity lesion concerning for 2nd focus of metastases Suspected leptomeningeal involvement Left facial paresthesia Left upper and lower extremity paresthesias and motor weakness * Continue scheduled decadron for vasogenic edema * Continue frequent neuro checks, will decrease to q4h from q2h as patient has remained stable overnight * Fioricet as needed for headache, oxycodone 5 mg breakthrough pain * Continue home doses of Wellbutrin and Celexa * Neurosurgery, rad onc, and med onc recs appreciated. Plan as per notes is to start targeted sterotactic rad this week or whole brain rad if she decompensates in the interim. No neurosurgery interventions planned, patient has no signs or symptoms concerning for development of hydrocephalus at this point. * PT/OT evals, OOB today PULM: Tobacco use disorder * Nicotine patch, counseled on importance of smoking cessation F/E/N: * Regular diet * No maintenance IV fluids * ICU electrolyte protocol ID: History of herpes simplex virus * Continue home dose of valacyclovir PROPHY: * PPI while on steroids * SCDs only, hold SQH in the setting of new brain lesions, encourage early ambulation, overall low risk for DVT OVERALL: This patient remains critically ill but stable. She has no signs or symptoms concerning for development of obstructive hydrocephalus or neurologic deterioration. If she remains stable to improved, she can be transitioned to the hospitalist service in AM. A palliative care consult is requested to help the patient and her family develop goals of care given her extensive metastatic disease. Level 2 follow up To help prompt me to consider important information that might be impacting today's encounter and assessment, information from prior notes written by myself or my colleagues may have been "brought forward" into today's note. My signature on this note, however, is an attestation that I personally performed the exam, history, and/or decision-making noted today, and, unless otherwise indicated, the interactions with patient, family, and staff as well as the review of records all occurred today. I also attest that the listed assessment and stated plan reflect my best clinical judgment today based on the combination of historical information, prior notes, and today's exam/ interactions. Code Status: Full
[2018-10-02] MEDS ORDERED: Butalbital/APAP/Caff 50/325/40 MG Tablet PO PRN (11:00)
[2018-10-02] MEDS: buPROPion 100 MG Tablet PO SCH (12:34)
--- NOTE | 2018-10-02 12:44 | P.PNNS ---
Subjective Interval history: October 02, 2018 The patient has remained stable overnight. She denies any headaches this morning. Physical Exam Vital signs: Vital Signs 10/01/18 13:16 10/01/18 15:52 10/01/18 17:58 Temperature 97.9 F 97.7 F Pulse Rate 76 77 68 Respiratory Rate 23 17 Blood Pressure 131/66 116/71 Pulse Oximetry 99 99 96 10/01/18 18:50 10/01/18 20:00 10/01/18 22:03 Temperature 97.9 F 98.6 F Pulse Rate 68 75 Respiratory Rate 18 13 Blood Pressure 132/65 Pulse Oximetry 97 100 96 10/01/18 22:05 10/01/18 22:29 10/01/18 23:00 Temperature Pulse Rate 74 72 73 Respiratory Rate 15 21 17 Blood Pressure 115/59 L 122/65 Pulse Oximetry 97 96 94 L 10/01/18 23:29 10/02/18 00:00 10/02/18 00:29 Temperature Pulse Rate 79 67 68 Respiratory Rate 18 15 23 Blood Pressure 107/54 L 106/55 L Pulse Oximetry 95 96 95 10/02/18 01:00 10/02/18 01:29 10/02/18 02:00 Temperature Pulse Rate 68 66 67 Respiratory Rate 18 19 22 Blood Pressure 119/63 Pulse Oximetry 97 97 95 10/02/18 02:29 10/02/18 03:00 10/02/18 03:29 Temperature Pulse Rate 68 77 62 Respiratory Rate 19 14 18 Blood Pressure 126/64 150/71 H Pulse Oximetry 96 97 96 10/02/18 04:00 10/02/18 04:29 10/02/18 05:00 Temperature 98.6 F Pulse Rate 63 60 58 L Respiratory Rate 18 19 20 Blood Pressure 150/71 H 138/67 Pulse Oximetry 97 97 10/02/18 05:29 10/02/18 06:00 10/02/18 06:29 Temperature Pulse Rate 54 L 55 L 59 L Respiratory Rate 24 14 14 Blood Pressure 94/64 L 106/65 Pulse Oximetry 94 L 93 L 10/02/18 07:00 10/02/18 07:29 10/02/18 08:00 Temperature 98.0 F Pulse Rate 54 L 73 68 Respiratory Rate 25 H 39 H 31 H Blood Pressure 114/58 L 110/66 Pulse Oximetry 83 L 97 100 10/02/18 08:29 10/02/18 09:00 10/02/18 09:29 Temperature Pulse Rate 68 72 71 Respiratory Rate 44 H 20 22 Blood Pressure 110/66 126/78 126/78 Pulse Oximetry 93 L 93 L 95 10/02/18 10:00 10/02/18 10:29 10/02/18 11:00 Temperature Pulse Rate 75 69 71 Respiratory Rate 19 38 H 19 Blood Pressure 127/68 Pulse Oximetry 95 96 10/02/18 11:29 Temperature Pulse Rate 82 Respiratory Rate 42 H Blood Pressure 126/74 Pulse Oximetry Intake & Output 10/01/18 10/02/18 10/02/18 18:59 06:59 18:59 Weight 70.307 kg 75.8 kg Other: # Voids 2 Weight On Admission 70.3 kg - Routine Neurological Exam October 02, 2018 Patient is lying comfortably in bed as I enter the room. She is in no acute distress. On neurological examination, mental status testing finds her to be awake and alert. She is oriented by 3. Cognitive functions grossly intact. His speech is fluent. Cranial nerve testing 2 through 12 is grossly intact with diminished sensation to light touch over the left V1, V2, and V3 distribution. Visual meyers are full to confrontation. Extraocular movements full without diplopia nor nystagmus. Face was symmetric. Tongue and uvula were in the midline. Motor and sensory examination was stable with some mild dysmetria on the left with some decreased light touch on the left. She is ambulatory but has some difficulty with her balance. Assessment and Plan - Plan October 02, 2018 The patient has remained neurologically stable and intact has improved somewhat with parenteral Decadron. From a neurosurgical perspective the patient can be transferred to the floor and mobilized with physical therapy. I will defer further management to medical oncology and radiation oncology. Since there is no indication presently for further neurosurgical evaluation and treatment, neurosurgery will sign off. Please reconsult as needed.
[2018-10-03] MEDS: Insulin NovoLIN Regular Correctional Sugar Inj SQ SCH ×3 (02:54→13:12)
[2018-10-03] MEDS: Chlorhexidine Gluconate 2% 1 Pack (2 Cloths) TOPICAL SCH (03:01)
[2018-10-03 05:31] LABS: Baso % (Auto) 0.1 % (0.0-2.0); Hematocrit 36.4 % (35.0-46.0); Hemoglobin 12.4 gm/dL (11.6-15.3); Lymph # (Auto) 0.7 th/mm3 (1.0-4.8); Lymph % (Auto) 8.6 % (9.0-44.0); Mean Corpuscular Hemoglobin 35.5 pg (27.0-34.0); Mean Corpuscular Volume 104.4 fL (80.0-100.0); Mean Platelet Volume 6.9 fL (7.0-11.0); Mono # (Auto) 0.3 th/mm3 (0.0-0.9); Mono % (Auto) 3.1 % (0.0-8.0); Neut # (Auto) 7.6 th/mm3 (1.8-7.7); Neut % (Auto) 88.2 % (16.0-70.0); Platelet Count 315 th/mm3 (150-450); Red Blood Count 3.49 mil/mm3 (4.00-5.30); Red Cell Distribution Width 12.2 % (11.6-17.2); White Blood Count 8.6 th/mm3 (4.0-11.0)
[2018-10-03 06:01] LABS: Anion Gap 9 meq/L (5-15); Blood Urea Nitrogen 10 mg/dL (7-18); Calcium 8.8 mg/dL (8.5-10.1); Carbon Dioxide 24.2 meq/L (21.0-32.0); Chloride 106 meq/L (98-107); Glomerular Filtration Rate Greater Than 89 mL/min (>89); Glucose,Random 120 mg/dL (74-106); Magnesium 2.3 mg/dL (1.5-2.5); Potassium 4.1 meq/L (3.5-5.1); Sodium 139 meq/L (136-145)
[2018-10-03 06:02] LABS: Phosphorus 3.7 mg/dL (2.5-4.9)
[2018-10-03] MEDS ORDERED: valACYclovir 500 MG Tab PO SCH (09:00)
[2018-10-03] MEDS: Senna/Docusate Sodium 8.6/50 MG Tablet PO SCH (09:32)
[2018-10-03] MEDS: Famotidine 20 MG Tablet PO SCH (09:32)
[2018-10-03] MEDS: buPROPion 100 MG Tablet PO SCH (09:32)
[2018-10-03] MEDS: Polyethylene Glycol 3350 17 GM Packet PO SCH (09:33)
--- NOTE | 2018-10-03 11:29 | P.CONPAL ---
Consult Service: Palliative Care Requesting Physician: Galina Delgado Reason for Consult: a. To assist with evaluation and management of symptoms including: pain, weakness b. To assist medical decision maker(s) with: better understanding of current medical conditions; weighing benefits/burdens of medical treatment options; making medical treatment decisions. Primary Care Provider: Cheyanne Cheney DO History of Present Illness History of Present Illness: This is a 53-year-old female with a known history of metastatic colon cancer who presented to the ED with history of left-sided facial and tongue numbness that started several weeks prior. Patient reported that she fell while trying to cook some soup and hit her head. No known loss of consciousness or prolonged downtime. She had followed up with her primary care doctor who ordered an outpatient MRI, however this is not scheduled until October 13. 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 She also endorsed worsening of her headache in the left temporal area. She tried ibuprofen prior to coming to the hospital without any relief. Patient and her significant other report known metastasis to her lung and lymph nodes. They report no chemo or radiation for 2 years and were declining any further treatment. While in the ED, she underwent brain MRI which revealed right thalamic lesion with extensive vasogenic edema extending to the brainstem. Left frontal convexity lesion, and extra-axial dural thickening concerning for leptomeningeal involvement. ED physician discussed findings with patient and her , patient has elected to remain full code. She was agreeable to admission to the ICU with medical management, and was agreeable to meeting with palliative care. Palliative care has been consulted for assistance in goals of care and symptom management. Current imaging: * C-spine MRI: 1. Left posterior lateral disc protrusion at C6-7 with foraminal encroachment. 2. Degenerative disc disease at C4-5, C5-6 and C6-7 as described. 3. No acute bony abnormality. 4. Normal-appearing spinal cord. * Brain MRI: 1. 1.8 cm rim-enhancing mass within the right thalamus with moderate mass effect and extensive vasogenic edema extending caudally into the brainstem characteristic of metastatic disease. 2. Small T2 hyperintense focus along the left frontal convexity which may represent a second lesion. 3. Extra- axial dural thickening is noted along the right temporal lobe which may represent leptomeningeal involvement. * Lumbar spine MRI: 1. Degenerative disc disease as described. 2. Discrete findings to account for the patient's left-sided weakness. 3. No acute bony abnormality, spinal stenosis or foraminal encroachment. 4. Small central disc protrusion at L4-5. Patient has been seen and evaluated by neurosurgery who is in agreement with conservative approach as surgical intervention is not indicated at this point. She may likely be a candidate for stereotactic radiosurgery. Patient is also been seen by radiation oncology is recommending stereotactic radiosurgery with neurosurgery as this may give her better control of her lesion. He also discussed possibility of whole brain radiation for the additional lesion. At this point, patient has had improvement in her symptoms after receiving IV Decadron. At time of my visit today, patient sitting up in bed. She is alert and oriented x4. She currently reports headache is better, and numbness in her face is subsiding. She no longer has tingling in her fingers and feels her strength is improving. She has been ambulatory in the room. Explored her understanding of her history of metastatic cancer. 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 She states she also did not like her oncologist so did not follow-up and became busy and was lost to follow-up. She also indicates that she spoke with Dr. 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 She was then agreeable to resection. She reports she did not realize how much time in the past, she did not realize she had to follow-up with Dr. merino post surgery. She also states she go to the doctor when she started having facial numbness and headaches as she was hoping to get to the [facility], and was going to follow-up with everything at that point. At this time, she is agreeable to stereotactic radiosurgery if it is not going to give her a lot of symptoms. She is hopeful to be able to enjoy what she has left of her life, she has plans to go to [facility], visit family members. Explored DNR, she states she would not want to be on life support. She reports she has a lot of unfinished business that she has been actively working on to get done. Provided her with 5 wishes, [place] DNR, healthcare surrogate, and living will to complete. Significant other arrived, we discussed the above conversation. He is supportive of her decisions. Function/Cognitive Trajectory: She has remained independent at home. 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 She states she has been suffering from headaches for several weeks but was still able to function at work. Review of Systems Constitutional: Reports headache(s) Eyes: Denies change in vision Ears, Nose, Mouth, and Throat: Reports headache(s) Cardiovascular: Denies chest pain, Denies shortness of breath Respiratory: Denies cough, Denies wheezing Gastrointestinal: Denies abdominal pain, Denies nausea, Denies vomiting Genitourinary: Denies blood in urine, Denies urinary incontinence Musculoskeletal: Reports abnormal walking Skin/Breast: Denies change in skin color Neurologic: Reports dizziness, Reports headache(s), Reports lack of coordination , Reports localized weakness, Reports numbness, Reports sensory deficit Psychiatric: Denies anxiety, Denies confusion Endocrine: Denies cold intolerance, Denies heat intolerance Hematologic/Lymphatic: Denies easy bleeding, Denies easy bruising Allergic/Immunologic: Denies GI upset with certain foods PMFSH - History History Provided By: Patient, Family Member, Medical Record - Medical History Medical History: Medical History (Last Reviewed 10/03/18 @ 11:28 by LA Marshall) Depression Genital herpes Normal colonoscopy Rectal cancer - Surgical History Surgical History: Surgical History (Last Updated 10/03/18 @ 11:28 by LA Marshall) History of rectal surgery Hx of tonsillectomy - Family History Family History: Family History (Last Reviewed 10/02/18 @ 09:19 by Lorelei Og) Other Family history non-contributory - Social History I have reviewed the patient's Social History: Yes - Tobacco History Second Hand Smoke Exposure: Yes Tobacco Use In Past 30 Days: Yes Smoking Status: Current every day smoker Tobacco Type: Cigarettes - Alcohol History How Often Do You Have a Drink Containing Alcohol: 4 or more times a week - Substance Use History Substance History: Active Abuse - Substance Use Type Marijuana Type: medical marijuana Status: Active Route Used: Inhalation Comment: Medical marijuana - Travel History Recent Travel in the [place] Within the Last 8 Weeks: No Recent Travel Out of the Country Within the Last 8 Weeks: No - Immunization History Tetanus Immunization: >5 Years Hx Influenza Vaccine This Season: No Medications and Allergies Active Medications: Active Medications Acetaminophen (Tylenol) 650 mg PO Q6H PRN PRN Reason: FEVER Last Admin: 10/02/18 10:52 Dose: 650 mg Acetaminophen/Butalbital/Caffeine (Fioricet 50-325-40) 1 tab PO Q6H PRN PRN Reason: HEADACHE Last Admin: 10/03/18 09:29 Dose: 1 tab Albuterol (Duoneb Neb (Prn)) 1 ampul NEB Q2HR NEB PRN PRN Reason: WHEEZING Bisacodyl (Dulcolax Supp) 10 mg RECTAL DAILY PRN PRN Reason: if no BM in last 24h Bupropion HCl (Wellbutrin) 300 mg PO DAILY [facility] Last Admin: 10/03/18 09:32 Dose: 300 mg Cetirizine HCl (Zyrtec) 10 mg PO DAILY [facility] Last Admin: 10/03/18 09:31 Dose: Not Given Chlorhexidine Gluconate (Chlorhexidine 2% Cloth) 3 pack TOPICAL DAILY@0400 [facility] Stop: 10/07/18 03:59 Last Admin: 10/03/18 03:01 Dose: 3 pack Chlorhexidine Gluconate (Chlorhexidine 2% Cloth) 3 pack TOPICAL DAILY@0400 PRN PRN Reason: Extra cloth needed Stop: 10/07/18 03:59 Citalopram Hydrobromide (Celexa) 40 mg PO DAILY [facility] Last Admin: 10/03/18 09:32 Dose: 40 mg Dexamethasone Sodium Phosphate (Decadron Inj) 4 mg IV.PUSH Q6HR [facility] Last Admin: 10/03/18 05:10 Dose: 4 mg Dextrose (D50w Vial) 50 ml IV.PUSH UNSCH PRN PRN Reason: PER HYPOGLYCEMIA PROTOCOL Famotidine (Pepcid) 20 mg PO BID [facility] Last Admin: 10/03/18 09:32 Dose: 20 mg Glucagon (Glucagon Inj) 1 mg OTHER PRN PRN PRN Reason: for Hypoglycemia Protocol Magnesium Sulfate 4 gm/ Sodium (Chloride) 100 mls @ 50 mls/hr IV.SIG UNSCH PRN PRN Reason: For Magnesium 0.9 - 1.1 mg/dL Magnesium Sulfate 2 gm/ Sodium (Chloride) 100 mls @ 50 mls/hr IV.SIG UNSCH PRN PRN Reason: For Magnesium 1.2 - 1.6 mg/dL Potassium Chloride (Kcl 40 Meq Premix Inj) 40 meq in 100 mls @ 25 mls/hr IV.SIG Q2H PRN PRN Reason: For Potassium 2.8 - 3.2 mEq/L Potassium Chloride (Kcl 20 Meq Premix Inj) 20 meq in 100 mls @ 50 mls/hr IV.SIG Q2H PRN PRN Reason: For Potassium 3.3 - 3.5 mEq/L Potassium Chloride (Kcl 40 Meq Premix Inj) 40 meq in 100 mls @ 25 mls/hr IV.SIG UNSCH PRN PRN Reason: For Potassium 3.3 - 3.5 mEq/L Potassium Chloride (Kcl 20 Meq Premix Inj) 20 meq in 100 mls @ 50 mls/hr IV.SIG Q2H PRN PRN Reason: For Potassium 2.8 - 3.2 mEq/L Potassium Phosphate 30 mmol/ (Sodium Chloride) 260 mls @ 42 mls/hr IV.SIG UNSCH PRN PRN Reason: SEE LABEL COMMENTS Sodium Phosphate 30 mmol/ (Sodium Chloride) 260 mls @ 42 mls/hr IV.SIG UNSCH PRN PRN Reason: For Phosphorus < 2.5 mg/dL Insulin Human Regular (Novolin R Correctional Sugar Inj) 0 units SQ ACHS AND 3AM ERNESTO; Protocol Last Admin: 10/03/18 09:29 Dose: Not Given Lactulose (Lactulose Liq) 30 ml PO BID [facility] Last Admin: 10/03/18 09:33 Dose: Not Given Magnesium Oxide (Mag-Ox) 800 mg PO UNSCH PRN PRN Reason: For Magnesium 1.2 - 1.6 mg/dL Nicotine (Habitrol 7 Mg Patch.24 Hr) 1 patch T-DERMAL DAILY [facility] Last Admin: 10/03/18 09:33 Dose: Not Given Ondansetron HCl (Zofran Inj) 4 mg IV.PUSH Q6H PRN PRN Reason: NAUSEA OR VOMITING Oxycodone HCl (Roxicodone) 5 mg PO Q4H PRN PRN Reason: BREAKTHROUGH PAIN Patch Removal (Remove Old Patch) 1 each T-DERMAL DAILY [facility] Last Admin: 10/03/18 09:33 Dose: Not Given Polyethylene Glycol (Miralax) 17 gm PO BID [facility] Last Admin: 10/03/18 09:33 Dose: Not Given Potassium Bicarb/Potassium Chloride (K-Lyte Cl Eff) 50 meq PO UNSCH PRN PRN Reason: For Potassium 3.3 - 3.5 mEq/L Potassium Phosphate (K-Phos Original) 2,000 mg PO Q4H PRN PRN Reason: Phosphorus Less Than 2.5 mg/dL Potassium Phosphate (K-Phos Original) 2,000 mg PO UNSCH PRN PRN Reason: SEE LABEL COMMENTS Senna/Docusate Sodium (Nelli-Colace) 1 tab PO BID [facility] Last Admin: 10/03/18 09:32 Dose: 1 tab Sodium Chloride (Ns Flush) 2 ml IV.FLUSH PRN PRN PRN Reason: FLUSH AFTER USING IV ACCESS Last Admin: 10/03/18 09:29 Dose: 2 ml Sodium Chloride (Ns Flush) 2 ml IV.FLUSH UNSCH PRN PRN Reason: FLUSH AFTER USING IV ACCESS Valacyclovir HCl (Valtrex) 500 mg PO DAILY [facility] Last Admin: 10/03/18 09:31 Dose: 500 mg Allergies Allergy/AdvReac Type Severity Reaction Status Date / Time No Known Allergies Allergy Unverified 10/01/18 12:22 Home Medications Medication Instructions Recorded Confirmed Type bupropion HCl 300 mg PO QAM 05/19/18 10/01/18 History cetirizine [Zyrtec] 10 mg PO DAILY 05/19/18 10/01/18 History citalopram 40 mg PO DAILY 05/19/18 10/01/18 History valacyclovir 1,500 mg PO DAILY 05/19/18 10/01/18 History Advance Directives Living Will: No Healthcare Surrogate: Yes Health Care Surrogate Name and Number: Davon Physical Exam Vital Signs: Vital Signs - 24 hr 10/02/18 11:00 10/02/18 11:29 10/02/18 12:00 Temperature 97.8 F Pulse Rate 71 82 84 Respiratory Rate 19 42 H 22 Blood Pressure 126/74 115/66 Pulse Oximetry 99 10/02/18 12:29 10/02/18 12:36 10/02/18 13:00 Temperature Pulse Rate 73 66 Respiratory Rate 29 H 26 H 23 Blood Pressure 115/66 Pulse Oximetry 10/02/18 13:29 10/02/18 14:00 10/02/18 14:29 Temperature Pulse Rate 67 74 80 Respiratory Rate 18 16 39 H Blood Pressure 114/59 L 124/64 124/64 Pulse Oximetry 96 10/02/18 15:00 10/02/18 15:29 10/02/18 16:00 Temperature 98.3 F Pulse Rate 75 78 81 Respiratory Rate 17 18 20 Blood Pressure 118/63 116/66 Pulse Oximetry 10/02/18 16:29 10/02/18 17:00 10/02/18 17:29 Temperature Pulse Rate 78 70 73 Respiratory Rate 46 H 22 19 Blood Pressure 116/66 110/64 Pulse Oximetry 10/02/18 18:00 10/02/18 18:02 10/02/18 18:07 Temperature Pulse Rate 80 76 75 Respiratory Rate 18 Blood Pressure 120/73 Pulse Oximetry 10/02/18 18:29 10/02/18 19:00 10/02/18 19:29 Temperature Pulse Rate 80 71 70 Respiratory Rate 22 22 20 Blood Pressure 125/78 120/86 Pulse Oximetry 10/02/18 20:00 10/02/18 20:29 10/02/18 21:00 Temperature 98.4 F Pulse Rate 72 70 67 Respiratory Rate 18 24 19 Blood Pressure 126/64 Pulse Oximetry 97 10/02/18 21:29 10/02/18 22:00 10/02/18 22:29 Temperature Pulse Rate 67 61 72 Respiratory Rate 18 17 21 Blood Pressure 120/64 123/80 Pulse Oximetry 96 10/02/18 23:00 10/02/18 23:29 10/03/18 00:00 Temperature Pulse Rate 61 67 58 L Respiratory Rate 17 13 16 Blood Pressure 125/63 Pulse Oximetry 96 10/03/18 00:29 10/03/18 00:38 10/03/18 01:00 Temperature Pulse Rate 57 L 50 L 55 L Respiratory Rate 22 19 Blood Pressure 117/66 Pulse Oximetry 10/03/18 01:29 10/03/18 02:00 10/03/18 02:29 Temperature Pulse Rate 62 54 L 52 L Respiratory Rate 16 13 21 Blood Pressure 116/56 L 99/57 L Pulse Oximetry 10/03/18 03:00 10/03/18 03:29 10/03/18 04:00 Temperature Pulse Rate 50 L 49 L 54 L Respiratory Rate 22 13 14 Blood Pressure 89/51 L Pulse Oximetry 96 10/03/18 04:29 10/03/18 05:00 10/03/18 05:29 Temperature Pulse Rate 59 L 64 58 L Respiratory Rate 22 20 19 Blood Pressure 111/64 123/66 Pulse Oximetry 10/03/18 06:00 10/03/18 06:19 Temperature Pulse Rate 56 L 57 L Respiratory Rate 20 Blood Pressure Pulse Oximetry I&O: Intake & Output 10/01/18 10/02/18 10/03/18 10/04/18 06:59 06:59 06:59 06:59 Intake Total 1440 / 1440 Balance 1440 / 1440 Weight 75.8 kg 74.6 kg Physical Exam: CONSTITUTIONAL/GENERAL: This is an adequately nourished patient, in no apparent distress. TUBES/LINES/DRAINS: PIV SKIN: No jaundice, rashes, or lesions. Ecchymoses on upper extremities. No wounds seen anteriorly. Skin temperature appropriate. Not diaphoretic. HEAD: Atraumatic. Normocephalic. EYES: Pupils equal and round and reactive. Extraocular motions intact. No scleral icterus. No injection or drainage. Fundi not examined. ENT: Hearing grossly normal. Nose without bleeding or purulent drainage. Throat without visible erythema, exudates, masses, or lesions. NECK: Trachea midline. Supple, nontender. No palpable thyroid enlargement or nodularity. CARDIOVASCULAR: Regular rate and rhythm without murmurs, gallops, or rubs. No JVD. Peripheral pulses symmetric. RESPIRATORY/CHEST: Symmetric, unlabored respirations. Clear to auscultation. Breath sounds equal bilaterally. No wheezes, rales, or rhonchi. GASTROINTESTINAL: Abdomen soft, non-tender, nondistended. No hepato-splenomegaly , or palpable masses. No guarding. Bowel sounds present. GENITOURINARY: Without palpable bladder distension. MUSCULOSKELETAL: Extremities without clubbing, cyanosis, or edema. No joint tenderness or effusion noted. No calf tenderness. No mottling or clubbing. LYMPHATICS: No palpable cervical or supraclavicular adenopathy. NEUROLOGICAL: Awake and alert. Motor and sensory grossly within normal limits. Follows commands. Cognitively sharp. Moves all extremities. PSYCHIATRIC: No obvious anxiety/depression. no apparent hallucinations or other psychotic thought process. Diagnostic Tests Laboratory: Laboratory Results - last 72 hr 10/01/18 10/01/1818 13:25 13:25 14:40 WBC 6.0 RBC 3.26 L Hgb 12.5 Hct 33.9 L MCV 103.7 H MCH 38.3 H MCHC 37.0 H RDW 12.2 Plt Count 268 MPV 6.8 L Prelim Diff (Auto) Slide review pending Neut % (Auto) 69.3 Lymph % (Auto) 15.1 [place] % (Auto) 12.5 H Eos % (Auto) 2.1 Baso % (Auto) 1.0 Neut # (Auto) 4.1 Lymph # (Auto) 0.9 L [place] # (Auto) 0.7 Eos # (Auto) 0.1 Baso # (Auto) 0.1 WBC Differential . Diff Scan Auto diff confirmed Differential Comment . Sodium 140 Potassium 4.6 Chloride 107 Carbon Dioxide 28.5 Anion Gap 5 BUN 9 Creatinine 0.68 Estimated GFR Greater than 89 POC Glucose Random Glucose 93 Calcium 8.4 L Phosphorus Magnesium Total Bilirubin 0.3 AST 18 ALT 25 Alkaline Phosphatase 76 Total Protein 7.5 Albumin 3.5 Urine Color Yellow Urine Clarity Clear Urine pH 5.0 Ur Specific [place] 1.009 Urine Protein Negative Urine Glucose (UA) Negative Urine Ketones Negative Urine Occult Blood Small H Urine Nitrate Negative Urine Bilirubin Negative Urine Urobilinogen Less than 2 Ur Leukocyte Esterase Small H Urine RBC 1 Urine WBC 3 Ur Squamous Epith Cells <1 Urine Mucus Few H Micro UA Comment Culture not ind Ur Microscopic Review Not Reportable Urine Culture Comments Culture not ind Nasal Screen MRSA (PCR) 10/01/18 10/02/18 10/02/18 22:50 00:45 04:10 WBC 5.2 RBC 3.60 L Hgb 12.8 Hct 36.9 MCV 102.5 H MCH 35.5 H MCHC 34.7 RDW 12.0 Plt Count 310 MPV 6.9 L Prelim Diff (Auto) Neut % (Auto) 86.4 H Lymph % (Auto) 12.5 [place] % (Auto) 0.9 Eos % (Auto) 0.0 Baso % (Auto) 0.2 Neut # (Auto) 4.5 Lymph # (Auto) 0.6 L [place] # (Auto) 0.0 Eos # (Auto) 0.0 Baso # (Auto) 0.0 WBC Differential . Diff Scan Differential Comment Auto diff final Sodium Potassium Chloride Carbon Dioxide Anion Gap BUN Creatinine Estimated GFR POC Glucose 141 H Random Glucose Calcium Phosphorus Magnesium Total Bilirubin AST ALT Alkaline Phosphatase Total Protein Albumin Urine Color Urine Clarity Urine pH Ur Specific [place] Urine Protein Urine Glucose (UA) Urine Ketones Urine Occult Blood Urine Nitrate Urine Bilirubin Urine Urobilinogen Ur Leukocyte Esterase Urine RBC Urine WBC Ur Squamous Epith Cells Urine Mucus Micro UA Comment Ur Microscopic Review Urine Culture Comments Nasal Screen MRSA (PCR) Not detected 10/02/18 10/02/18 10/02/18 04:10 08:47 12:40 WBC RBC Hgb Hct MCV MCH MCHC RDW Plt Count MPV Prelim Diff (Auto) Neut % (Auto) Lymph % (Auto) [place] % (Auto) Eos % (Auto) Baso % (Auto) Neut # (Auto) Lymph # (Auto) [place] # (Auto) Eos # (Auto) Baso # (Auto) WBC Differential Diff Scan Differential Comment Sodium 138 Potassium 4.1 Chloride 107 Carbon Dioxide 22.4 Anion Gap 9 BUN 9 Creatinine 0.55 Estimated GFR Greater than 89 POC Glucose 125 H 155 H Random Glucose 146 H Calcium 8.6 Phosphorus 3.5 Magnesium 2.2 Total Bilirubin AST ALT Alkaline Phosphatase Total Protein Albumin Urine Color Urine Clarity Urine pH Ur Specific [place] Urine Protein Urine Glucose (UA) Urine Ketones Urine Occult Blood Urine Nitrate Urine Bilirubin Urine Urobilinogen Ur Leukocyte Esterase Urine RBC Urine WBC Ur Squamous Epith Cells Urine Mucus Micro UA Comment Ur Microscopic Review Urine Culture Comments Nasal Screen MRSA (PCR) 10/02/18 10/02/18 10/03/18 17:08 21:19 02:46 WBC RBC Hgb Hct MCV MCH MCHC RDW Plt Count MPV Prelim Diff (Auto) Neut % (Auto) Lymph % (Auto) [place] % (Auto) Eos % (Auto) Baso % (Auto) Neut # (Auto) Lymph # (Auto) [place] # (Auto) Eos # (Auto) Baso # (Auto) WBC Differential Diff Scan Differential Comment Sodium Potassium Chloride Carbon Dioxide Anion Gap BUN Creatinine Estimated GFR POC Glucose 130 H 128 H 150 H Random Glucose Calcium Phosphorus Magnesium Total Bilirubin AST ALT Alkaline Phosphatase Total Protein Albumin Urine Color Urine Clarity Urine pH Ur Specific [place] Urine Protein Urine Glucose (UA) Urine Ketones Urine Occult Blood Urine Nitrate Urine Bilirubin Urine Urobilinogen Ur Leukocyte Esterase Urine RBC Urine WBC Ur Squamous Epith Cells Urine Mucus Micro UA Comment Ur Microscopic Review Urine Culture Comments Nasal Screen MRSA (PCR) 10/03/18 10/03/18 10/03/18 04:30 04:30 09:28 WBC 8.6 RBC 3.49 L Hgb 12.4 Hct 36.4 MCV 104.4 H MCH 35.5 H MCHC 34.0 RDW 12.2 Plt Count 315 MPV 6.9 L Prelim Diff (Auto) Neut % (Auto) 88.2 H Lymph % (Auto) 8.6 L [place] % (Auto) 3.1 Eos % (Auto) 0.0 Baso % (Auto) 0.1 Neut # (Auto) 7.6 Lymph # (Auto) 0.7 L [place] # (Auto) 0.3 Eos # (Auto) 0.0 Baso # (Auto) 0.0 WBC Differential . Diff Scan Differential Comment Auto diff final Sodium 139 Potassium 4.1 Chloride 106 Carbon Dioxide 24.2 Anion Gap 9 BUN 10 Creatinine 0.64 Estimated GFR Greater than 89 POC Glucose 131 H Random Glucose 120 H Calcium 8.8 Phosphorus 3.7 Magnesium 2.3 Total Bilirubin AST ALT Alkaline Phosphatase Total Protein Albumin Urine Color Urine Clarity Urine pH Ur Specific [place] Urine Protein Urine Glucose (UA) Urine Ketones Urine Occult Blood Urine Nitrate Urine Bilirubin Urine Urobilinogen Ur Leukocyte Esterase Urine RBC Urine WBC Ur Squamous Epith Cells Urine Mucus Micro UA Comment Ur Microscopic Review Urine Culture Comments Nasal Screen MRSA (PCR) Result Diagrams: 10/03/18 04:30 10/03/18 04:30 Imaging: Impressions Cervical Spine MRI 10/01/18 13:16 CONCLUSION: 1. Left posterior lateral disc protrusion at C6-7 with foraminal encroachment. 2. Degenerative disc disease at C4-5, C5-6 and C6-7 as described. 3. No acute bony abnormality. 4. Normal-appearing spinal cord. Head MRI 10/01/18 13:16 CONCLUSION: 1. 1.8 cm rim-enhancing mass within the right thalamus with moderate mass effect and extensive vasogenic edema extending caudally into the brainstem characteristic of metastatic disease. 2. Small T2 hyperintense focus along the left frontal convexity which may represent a second lesion. 3. Extra-axial dural thickening is noted along the right temporal lobe which may represent leptomeningeal involvement. Lumbar Spine MRI 10/01/18 13:16 CONCLUSION: 1. Degenerative disc disease as described. 2. Discrete findings to account for the patient's left-sided weakness. 3. No acute bony abnormality, spinal stenosis or foraminal encroachment. 4. Small central disc protrusion at L4-5. Patient/Family Conference Present at Family Conference: Significant other Davon Family Conference Location: Bedside Issues Discussed: * Palliative care role, purpose, approach * Additional medical, psychosocial, and spiritual history * Patients general health, functional status, and cognitive changes in the months leading up to the current hospitalization * Patient/family understanding of the current medical problems * Patient/family understanding of prognosis * Patients goals of care as best understood from advance directives and/or conversations and/or values * Current medical treatment options and benefits/burdens of those options * Likely scenarios comparing ongoing aggressive care with a transition to comfort measures only * Questions answered to the best of my ability * Palliative care contact information provided Assessment and Plan - Symptom Scale (1) Numbness 0-10 Scale: Unable to quantify (2) Head and face pain 0-10 Scale: Unable to quantify (3) Weakness of extremity 0-10 Scale: Unable to quantify Pertinent Non-Medical Issues: Psychosocial: Patient is . She lost her to cancer 12 years ago. She has a significant other, Davon. 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 Provided 5 wishes and living will. Ethical issues impacting care: None Important Contacts: Friend Davon Enriquez [phone] Mother Alma Ruiz [phone] Prognosis: Patient has known history of metastatic colon cancer for which she has not been receiving treatment for greater than 2 years. Given her new metastasis to the brain, and wishes to not seek aggressive type care, life expectancy is limited. Patient considering palliative stereotactic radiosurgery which may provide better management of her symptoms. Code Status: No Code DNR Plan: Legal decision maker: Patient is currently capacitated to make her own decisions. She has elected her significant other, Davon, as healthcare surrogate if she were to lose capacity. Goals: Comfort oriented. We will possibly start stereotactic radiosurgery. Pending oncology and neurosurgery recommendations. If patient is not able to tolerate treatment, or upon completion, she is requesting hospice services. Consult placed to hospice Intake, spoke with Galina, for informational only visit. She has also requested DNR, [place] DNR and HCS signed in presence of SO. Provided her with living Will and 5 wishes CODE STATUS: DNR SYMPTOMS: --Pain: Patient had a several week history of headache and left-sided facial numbness. Also sustained a fall recently striking her head. -- Palliative care will continue to follow during hospital course as condition evolves, to assist patient/decision-maker with understanding of medical conditions, weighing benefits/burdens of treatment options, for clarification of goals of treatment. Additionally will assist with any symptoms of palliative concern Appreciation Thank you for the opportunity to participate in the care of Stacie Carbajal. Attestation Collaborating MD Comments: Dr. Randolph Attestation: To help prompt me to consider important information that might be impacting today's encounter and assessment, information from prior notes written by myself or my colleagues may have been "brought forward" into today's note. My signature on this note, however, is an attestation that I personally performed the exam, history, and/or decision-making noted today, and, unless otherwise indicated, the interactions with patient, family, and staff as well as the review of records all occurred today. I also attest that the listed assessment and stated plan reflect my best clinical judgment today based on the combination of historical information, prior notes, and today's exam/ interactions. When time spent is documented, it refers only to time spent today by the signer, or if indicated, combined time spent today by collaborating physician/nurse practitioner. .
--- NOTE | 2018-10-03 13:40 | P.PNIM ---
Subjective Interval history: Pt has NO new medical complaints. SANTIAGO improved from admission left facial numbness improved from admission LUE weakness improved from admission. Pt ambulating without difficulties. Physical Exam Vital signs: Last Vital Signs Temp 98.4 F 10/02/18 20:00 Pulse 57 L 10/03/18 06:19 Resp 20 10/03/18 06:00 BP 123/66 10/03/18 05:29 Pulse Ox 96 10/03/18 03:29 Results Labs CBC & Chem 7: 10/03/18 04:30 10/03/18 04:30 Assessment and Plan Assessment (1) Neoplasm of brain causing mass effect on adjacent structures: Code(s): D49.6 - Neoplasm of unspecified behavior of brain Status: Acute Plan 53yF with history of stage IV metastatic colon cancer with mets to lung and lymph nodes presents with 3-4 weeks of progressive morning headaches and left facial numbness that has progressed to full left-sided paresthesias over the last few days and today had left-sided weakness and could not hold a cooking wade today. In the ER, she was found to have a midbrain mass highly suggestive of metastatic disease. She denies any other recent complaints. denies vision changes, blurry vision, double vision, syncope, presyncope, chest pain, sob, fever, chills, n/v/c/d/abd pain. remainder of the ROS negative. neurosurgery has evaluated the patient and recommends iv dexamethasone as well as rad/onc and med/onc consultations. - comgmt with Neurosurgery & Radiation Oncology - Per NSX, no indiciation for surgery at this time. - Case d/w Dr. Jesús Jett (10/03/18) - sterotactic radiosurgery with Dr. Jett. Simulation 10/05/18 and then 5d course of treatment 10/07/18 - change decadron to 4mg PO q6h - discharge to home today - f/u with Dr. Jett 10/05/18 Progress Note: Quality VTE Deep Vein Thrombosis/Pulmonary Embolism Present on Admission: No
--- NOTE | 2018-10-03 14:13 | P.DS ---
DS: Providers Date of admission: 10/01/18 19:16 Primary care physician: Cheyanne Cheney DO Consults: 10/01/18 16:18 Consult to Neurosurgery Routine Consulting Provider: Salvador Haile Reason for Consultation: metastatic brain stem lesion with vasogenic edema Notified:: Physician Spoke with:: Dr Haile Date Notified:: 10/01/18 Time Notified:: 16:33 Ordering Provider: DELIA Consult to Oncology Routine Consulting Provider: Yang Butler Patient known to:: Emily Bowers Reason for Consultation: metastatic brain stem lesion Notified:: Service Spoke with:: Aretha Date Notified:: 10/01/18 Time Notified:: 16:28 Ordering Provider: DELIA 10/01/18 16:27 Consult to Radiation Oncology Routine Consulting Provider: Jesús Jett Reason for Consultation: metastatic brain stem/ thalamic mass with vasogenic edema Notified:: Service Spoke with:: Aretha Date Notified:: 10/01/18 Time Notified:: 16:40 Ordering Provider: DELIA 10/01/18 16:30 Consult to Palliative Care Routine Consulting Provider: Angelina Randolph Reason for Consultation: stage IV colon CA with mets to brainstem/ thalamus Notified:: Service Spoke with:: Mounika Date Notified:: 10/01/18 Time Notified:: 16:41 Ordering Provider: DELIA 10/02/18 10:37 Consult to Hospitalist Routine Consulting Provider: Saul Hogue Reason for Consultation: Continuation of medical management on 10/03 Notified:: Service Spoke with:: MOUNIKA Date Notified:: 10/02/18 Time Notified:: 10:46 Ordering Provider: DELIA Brief History from admission: 53yF with history of stage IV metastatic colon cancer with mets to lung and lymph nodes presents with 3-4 weeks of progressive morning headaches and left facial numbness that has progressed to full left-sided paresthesias over the last few days and today had left-sided weakness and could not hold a cooking wade today. In the ER, she was found to have a midbrain mass highly suggestive of metastatic disease. She denies any other recent complaints. denies vision changes, blurry vision, double vision, syncope, presyncope, chest pain, sob, fever, chills, n/v/c/d/abd pain. remainder of the ROS negative. neurosurgery has evaluated the patient and recommends iv dexamethasone as well as rad/onc and med/onc consultations. DS: Diagnosis Discharge Diagnosis (1) Neoplasm of brain causing mass effect on adjacent structures: Status: Acute DS: Summary 53yF with history of stage IV metastatic colon cancer with mets to lung and lymph nodes presents with 3-4 weeks of progressive morning headaches and left facial numbness that has progressed to full left-sided paresthesias over the last few days and today had left-sided weakness and could not hold a cooking wade today. In the ER, she was found to have a midbrain mass highly suggestive of metastatic disease. She denies any other recent complaints. denies vision changes, blurry vision, double vision, syncope, presyncope, chest pain, sob, fever, chills, n/v/c/d/abd pain. remainder of the ROS negative. neurosurgery has evaluated the patient and recommends iv dexamethasone as well as rad/onc and med/onc consultations. - comgmt with Neurosurgery & Radiation Oncology - Per NSX, no indiciation for surgery at this time. - Case d/w Dr. Jesús Jett (10/03/18) - sterotactic radiosurgery with Dr. Jett. Simulation 10/05/18 and then 5d course of treatment 10/07/18 - change decadron to 4mg PO q6h - discharge to home today - f/u with Dr. Jett 10/05/18 - Pt states that fioricet has been helpful and requests prescritpion upon discharge. Will write limited prescription. [employer] Prescription Drug Monitoring Database has been queried and verified prior to prescribing the controlled substance. Acute pain exception. This patient has normal, predicted, physiological, and time limited response to an adverse mechanical stimulus associated with surgery, trauma, or acute illness as described in my notes. There is a lack of alternative treatment options other than to include the prescribed narcotic treatment for this condition. Time Spent with Patient Total time spent providing and/or coordinating discharge services: Quality: VTE Deep Vein Thrombosis/Pulmonary Embolism Present on Admission: No Exam Narrative Exam Narrative: GENERAL: This is a well-nourished, well-developed patient, in no apparent distress. CARDIOVASCULAR: Regular rate and rhythm without murmurs, gallops, or rubs. RESPIRATORY: Clear to auscultation. Breath sounds equal bilaterally. No wheezes , rales, or rhonchi. GASTROINTESTINAL: Abdomen soft, non-tender, nondistended. Normal active bowel sounds MUSCULOSKELETAL: Extremities without clubbing, cyanosis, or edema. NEURO: Alert & Oriented x4 to person, place, time, situation. Moves all ext x4 Results Labs on day of discharge: Labs from last 24 hours 10/03/18 10/03/18 10/03/18 13:06 09:28 04:30 WBC RBC Hgb Hct MCV MCH MCHC RDW Plt Count MPV Neut % (Auto) Lymph % (Auto) [place] % (Auto) Eos % (Auto) Baso % (Auto) Neut # (Auto) Lymph # (Auto) [place] # (Auto) Eos # (Auto) Baso # (Auto) WBC Differential Differential Comment Sodium 139 Potassium 4.1 Chloride 106 Carbon Dioxide 24.2 Anion Gap 9 BUN 10 Creatinine 0.64 Estimated GFR Greater than 89 POC Glucose 120 H 131 H Random Glucose 120 H Calcium 8.8 Phosphorus 3.7 Magnesium 2.3 10/03/18 10/03/18 10/02/18 04:30 02:46 21:19 WBC 8.6 RBC 3.49 L Hgb 12.4 Hct 36.4 MCV 104.4 H MCH 35.5 H MCHC 34.0 RDW 12.2 Plt Count 315 MPV 6.9 L Neut % (Auto) 88.2 H Lymph % (Auto) 8.6 L [place] % (Auto) 3.1 Eos % (Auto) 0.0 Baso % (Auto) 0.1 Neut # (Auto) 7.6 Lymph # (Auto) 0.7 L [place] # (Auto) 0.3 Eos # (Auto) 0.0 Baso # (Auto) 0.0 WBC Differential . Differential Comment Auto diff final Sodium Potassium Chloride Carbon Dioxide Anion Gap BUN Creatinine Estimated GFR POC Glucose 150 H 128 H Random Glucose Calcium Phosphorus Magnesium 10/02/18 17:08 WBC RBC Hgb Hct MCV MCH MCHC RDW Plt Count MPV Neut % (Auto) Lymph % (Auto) [place] % (Auto) Eos % (Auto) Baso % (Auto) Neut # (Auto) Lymph # (Auto) [place] # (Auto) Eos # (Auto) Baso # (Auto) WBC Differential Differential Comment Sodium Potassium Chloride Carbon Dioxide Anion Gap BUN Creatinine Estimated GFR POC Glucose 130 H Random Glucose Calcium Phosphorus Magnesium Impressions ITS Impressions Cervical Spine MRI 10/01/18 13:16 CONCLUSION: 1. Left posterior lateral disc protrusion at C6-7 with foraminal encroachment. 2. Degenerative disc disease at C4-5, C5-6 and C6-7 as described. 3. No acute bony abnormality. 4. Normal-appearing spinal cord. Head MRI 10/01/18 13:16 CONCLUSION: 1. 1.8 cm rim-enhancing mass within the right thalamus with moderate mass effect and extensive vasogenic edema extending caudally into the brainstem characteristic of metastatic disease. 2. Small T2 hyperintense focus along the left frontal convexity which may represent a second lesion. 3. Extra-axial dural thickening is noted along the right temporal lobe which may represent leptomeningeal involvement. Lumbar Spine MRI 10/01/18 13:16 CONCLUSION: 1. Degenerative disc disease as described. 2. Discrete findings to account for the patient's left-sided weakness. 3. No acute bony abnormality, spinal stenosis or foraminal encroachment. 4. Small central disc protrusion at L4-5. Discharge Plan Discharge Disposition Patient Disposition: Discharge Home Discharge Condition Condition: Stable Discharge Order Discharge Orders: Discharge Order (Routine); Ordered 10/03/18 Ordered By: Ventura Freeman Discharge Details Anticipated Discharge Date: 10/03/18 Physicians Team ED Provider: Galina Delgado ED Midlevel Provider: Stephanie Aguila Primary Care Provider: Cheyanne Cheney Attending Provider: Reinaldo Menon Other Providers: Yang Butler ; Jesús Jett ; Angelina Randolph Jacques ; Saul Hogue Rxs /Orders / Referrals /Forms Prescriptions: New ommxqcejzr-ildwzjexuakbu-idfu 50-325-40 mg Tablet 1 tab PO Q6H PRN (Reason: Headache) Qty: 15 RF: 0 dexamethasone [Decadron] 4 mg tablet 4 mg PO Q6H Qty: 30 RF: 0 acetaminophen 325 mg Tablet 650 mg PO Q6H PRN (Reason: Fever) 20 Days Qty: 20 RF: 0 Continue citalopram 40 mg Tablet 40 mg PO DAILY RF: 0 valacyclovir 500 mg Tablet 1,500 mg PO DAILY RF: 0 bupropion HCl 300 mg Tablet Extended Release 24 Hr 300 mg PO QAM RF: 0 cetirizine [Zyrtec] 10 mg Tablet 10 mg PO DAILY RF: 0 Referrals: emily bowers [Other] - See Instructions (f/u with Oncology, Dr. Emily Bowers, in 1 week) Jesús Jett MD [Physician] - See Instructions (f/u with Dr. Espinosa Factor ) Cheyanne Cheney DO [Primary Care Provider] - See Instructions Status ED Status: Left Department
--- NOTE | 2018-10-03 15:55 | P.PNONC ---
Subjective Interval history: Resting comfortably in bed. No distress Objective Vital Signs/Intake & Output: Vital Signs 10/02/18 16:00 10/02/18 16:29 10/02/18 17:00 Temperature 98.3 F Pulse Rate 81 78 70 Respiratory Rate 20 46 H 22 Blood Pressure 116/66 116/66 Pulse Oximetry 10/02/18 17:29 10/02/18 18:00 10/02/18 18:02 Temperature Pulse Rate 73 80 76 Respiratory Rate 19 Blood Pressure 110/64 Pulse Oximetry 10/02/18 18:07 10/02/18 18:29 10/02/18 19:00 Temperature Pulse Rate 75 80 71 Respiratory Rate 18 22 22 Blood Pressure 120/73 125/78 Pulse Oximetry 10/02/18 19:29 10/02/18 20:00 10/02/18 20:29 Temperature 98.4 F Pulse Rate 70 72 70 Respiratory Rate 20 18 24 Blood Pressure 120/86 126/64 Pulse Oximetry 97 10/02/18 21:00 10/02/18 21:29 10/02/18 22:00 Temperature Pulse Rate 67 67 61 Respiratory Rate 19 18 17 Blood Pressure 120/64 Pulse Oximetry 10/02/18 22:29 10/02/18 23:00 10/02/18 23:29 Temperature Pulse Rate 72 61 67 Respiratory Rate 21 17 13 Blood Pressure 123/80 125/63 Pulse Oximetry 96 10/03/18 00:00 10/03/18 00:29 10/03/18 00:38 Temperature Pulse Rate 58 L 57 L 50 L Respiratory Rate 16 22 Blood Pressure 117/66 Pulse Oximetry 96 10/03/18 01:00 10/03/18 01:29 10/03/18 02:00 Temperature Pulse Rate 55 L 62 54 L Respiratory Rate 19 16 13 Blood Pressure 116/56 L Pulse Oximetry 10/03/18 02:29 10/03/18 03:00 10/03/18 03:29 Temperature Pulse Rate 52 L 50 L 49 L Respiratory Rate 21 22 13 Blood Pressure 99/57 L 89/51 L Pulse Oximetry 96 10/03/18 04:00 10/03/18 04:29 10/03/18 05:00 Temperature Pulse Rate 54 L 59 L 64 Respiratory Rate 14 22 20 Blood Pressure 111/64 Pulse Oximetry 10/03/18 05:29 10/03/18 06:00 10/03/18 06:19 Temperature Pulse Rate 58 L 56 L 57 L Respiratory Rate 19 20 Blood Pressure 123/66 Pulse Oximetry 10/03/18 07:00 10/03/18 08:00 10/03/18 09:00 Temperature 97.7 F Pulse Rate 67 64 58 L Respiratory Rate 18 17 18 Blood Pressure 120/69 107/66 117/70 Pulse Oximetry 10/03/18 10:00 10/03/18 11:00 10/03/18 12:00 Temperature Pulse Rate 71 73 76 Respiratory Rate 22 24 Blood Pressure 121/67 120/74 Pulse Oximetry 10/03/18 12:06 10/03/18 13:00 10/03/18 14:00 Temperature 98.6 F Pulse Rate 76 66 67 Respiratory Rate 12 16 27 H Blood Pressure 120/77 134/70 132/70 Pulse Oximetry Intake & Output 10/02/18 10/03/18 10/03/18 18:59 06:59 18:59 Intake Total 1200 / 1200 240 / 240 Balance 1200 / 1200 240 / 240 Weight 74.6 kg Intake: Oral 1200 / 1200 240 / 240 Other: # Voids 5 3 3 Date of Last Bowel Movement 10/01/18 10/01/18 10/03/18 # Bowel Movements 1 Result Diagrams: 10/03/18 04:30 10/03/18 04:30 Laboratory Results: Laboratory Results - last 24 hr 10/02/18 10/02/18 10/03/18 17:08 21:19 02:46 WBC RBC Hgb Hct MCV MCH MCHC RDW Plt Count MPV Neut % (Auto) Lymph % (Auto) [place] % (Auto) Eos % (Auto) Baso % (Auto) Neut # (Auto) Lymph # (Auto) [place] # (Auto) Eos # (Auto) Baso # (Auto) WBC Differential Differential Comment Sodium Potassium Chloride Carbon Dioxide Anion Gap BUN Creatinine Estimated GFR POC Glucose 130 H 128 H 150 H Random Glucose Calcium Phosphorus Magnesium 10/03/18 10/03/18 10/03/18 04:30 04:30 09:28 WBC 8.6 RBC 3.49 L Hgb 12.4 Hct 36.4 MCV 104.4 H MCH 35.5 H MCHC 34.0 RDW 12.2 Plt Count 315 MPV 6.9 L Neut % (Auto) 88.2 H Lymph % (Auto) 8.[address] [place] % (Auto) 3.1 Eos % (Auto) 0.0 Baso % (Auto) 0.1 Neut # (Auto) 7.6 Lymph # (Auto) 0.[address] [place] # (Auto) 0.3 Eos # (Auto) 0.0 Baso # (Auto) 0.0 WBC Differential . Differential Comment Auto diff final Sodium 139 Potassium 4.1 Chloride 106 Carbon Dioxide 24.2 Anion Gap 9 BUN 10 Creatinine 0.64 Estimated GFR Greater than 89 POC Glucose 131 H Random Glucose 120 H Calcium 8.8 Phosphorus 3.7 Magnesium 2.3 10/03/18 13:06 WBC RBC Hgb Hct MCV MCH MCHC RDW Plt Count MPV Neut % (Auto) Lymph % (Auto) [place] % (Auto) Eos % (Auto) Baso % (Auto) Neut # (Auto) Lymph # (Auto) [place] # (Auto) Eos # (Auto) Baso # (Auto) WBC Differential Differential Comment Sodium Potassium Chloride Carbon Dioxide Anion Gap BUN Creatinine Estimated GFR POC Glucose 120 H Random Glucose Calcium Phosphorus Magnesium Medications: Active Medications Generic Name Dose Route Start Last Admin Trade Name Freq PRN Reason Stop Dose Admin Acetaminophen 650 mg 10/01/18 19:26 10/02/18 10:52 Tylenol PO 650 mg Q6H PRN Administration FEVER Acetaminophen/Butalbital/Caffeine 1 tab 10/02/18 11:00 10/03/18 09:29 Fioricet 50-325-40 PO 1 tab Q6H PRN Administration HEADACHE Bupropion HCl 300 mg 10/02/18 11:00 10/03/18 09:32 Wellbutrin PO 300 mg DAILY ERNESTO Administration Cetirizine HCl 10 mg 10/03/18 09:00 10/03/18 09:31 Zyrtec PO Not Given DAILY ERNESTO Chlorhexidine Gluconate 3 pack 10/02/18 04:00 10/03/18 03:01 Chlorhexidine 2% Cloth TOPICAL 10/07/18 03:59 3 pack DAILY@0400 ERNESTO Administration Citalopram Hydrobromide 40 mg 10/02/18 11:00 10/03/18 09:32 Celexa PO 40 mg DAILY ERNESTO Administration Dexamethasone Sodium Phosphate 4 mg 10/01/18 18:00 10/03/18 13:02 Decadron Inj IV.PUSH 4 mg Q6HR ERNESTO Administration Famotidine 20 mg 10/01/18 21:00 10/03/18 09:32 Pepcid PO 20 mg BID ERNESTO Administration Insulin Human Regular 0 units 10/01/18 21:00 10/03/18 13:12 Novolin R Correctional Sugar Inj SQ Not Given ACHS AND 3AM ERNESTO Protocol Lactulose 30 ml 10/01/18 21:00 10/03/18 09:33 Lactulose Liq PO Not Given BID ERNESTO Nicotine 1 patch 10/02/18 11:00 10/03/18 09:33 Habitrol 7 Mg Patch.24 Hr T-DERMAL Not Given DAILY ERNESTO Patch Removal 1 each 10/03/18 09:00 10/03/18 09:33 Remove Old Patch T-DERMAL Not Given DAILY ERNESTO Polyethylene Glycol 17 gm 10/01/18 21:00 10/03/18 09:33 Miralax PO Not Given BID ERNESTO Senna/Docusate Sodium 1 tab 10/01/18 21:00 10/03/18 09:32 Nelli-Colace PO 1 tab BID ERNESTO Administration Sodium Chloride 2 ml 10/01/18 13:16 10/03/18 09:29 Ns Flush IV.FLUSH 2 ml PRN PRN Administration FLUSH AFTER USING IV ACCESS Valacyclovir HCl 500 mg 10/03/18 09:00 10/03/18 09:31 Valtrex PO 500 mg DAILY ERNESTO Administration Objective Remarks: GENERAL: Well-nourished, well-developed patient. SKIN: Warm and dry. HEAD: Normocephalic. EYES: No scleral icterus. No injection or drainage. NECK: Supple, trachea midline. No JVD or lymphadenopathy. LYMPHATIC: No adenopathy. RESPIRATORY:No accessory muscle use. EXTREMITIES: No edema. NEUROLOGICAL: Awake, alert, and oriented x3. PSYCHIATRIC: Appropriate mood and affect; insight and judgment normal. Assessment/Plan - Plan 1. Metastatic colon cancer: long discussion with patent and significant other. She has previously been reluctant to proceed with chemotherapy. Her after a long bout with metastatic prostate cancer. She watched him suffer through multiple treatments and did not want that for herself. She is admitted with metastatic disease to the brain. Radiation oncology team plans for SRS. She is amenable to trying chemotherapy. Will arrange for outpatient port placement, arrange for financial approval for FOLFOX/ryan. Discussed risks, benefits, alternative therapies, side effects. She is amenable to proceeding. She is DNR/DNI.
== END 2018-10-03 16:23 | disposition home or self-care (01) | DRG 54 ==
LOC: NEPC 12:14 → NEDA 19:16 → N03 21:25
PROVIDERS: ADMIT Internal Medicine Critical Care Medicine; ATTEND Internal Medicine Critical Care Medicine
CPT/HCPCS: 70553; 72156; 72158; 80048; 80053; 81001; 82948; 82962; 83735; 84100; 85025; 87641; 90774; 90784; 94150; 94640; 94650; 94651; 94667; 94668; 96374; 97161; 99291; A9585; C8952; J1100